=== PATIENT | female | born 1980 | race Caucasian/White ===

== ENCOUNTER → 2017-06-25 | Outpatient (CLI) | payer BC ==
[~2017-06-25] MED LIST: ALBU90OI6 INH; BISA5EC PO; Budeprion Xl300 MG PO; CYCL10 PO; Citrate Of Mag300 ML PO; DIPATR PO; DOCU100 PO; DULO30 PO; DULO60; EPIN.3I IM; FOLI1 PO; GABA300 PO; HYDHCL25 PO; HYDSUL200 PO; IBUP600 PO; Imitrex50 MG JT; LORA1 PO; METF500 PO; METTREX2.5 PO; NIKKI 3 MG-0.01 EACH PO; OXYC1TAB11; Ondansetron Odt8 MG PO; Oxycodone-Apap1 EAC3 PO; PRED10 PO; PRED5 PO; PSYL5.85P PO; Pepcid20 MG PO; Percocet 5-3251 EACH PO; Prednisone20 MG PO; TIZANIDINE HCL4 MG PO; TOPI50 PO; TOPIRAMATE; Yaz 28 Tablet1 EACH PO; ZYRTEC10 M1 PO
[2017-06-25 14:17] LABS: BASOPHILS ABSOLUTE AUTO 0.03 K/mm3 (0.00-0.23); BASOPHILS PERCENT AUTO 0 % (0-2); EOSINOPHILS ABSOLUTE AUTO 0.13 K/mm3 (0.00-0.68); EOSINOPHILS PERCENT AUTO 2 % (0-6); Hematocrit 37.3 % (33.0-51.0); Hemoglobin 12.3 g/dL (11.5-16.0); IMMATURE GRAN ABSOLUTE AUTO 0.02 K/mm3 (0.00-0.10); IMMATURE GRAN PERCENT AUTO 0 % (0-1); LYMPHOCYTES ABSOLUTE AUTO 2.13 K/mm3 (0.84-5.20); LYMPHOCYTES PERCENT AUTO 24 % (21-46); MONOCYTES ABSOLUTE AUTO 0.38 K/mm3 (0.16-1.47); MONOCYTES PERCENT AUTO 4 % (4-13); Mean Corpuscular HGB 28.9 pg (26.0-34.0); Mean Corpuscular Volume 88 fL (80-100); Mean Platelet Volume 9.1 fL (9.1-12.4); NEUTROPHILS PERCENT AUTO 70 % (41-73); Platelet Count 351 K/mm3 (150-400); RDW Coefficient Variation 12.3 % (11.7-14.2); RDW Standard Deviation 39.9 fL (35.1-46.3); Red Blood Cell Count 4.25 M/mm3 (3.80-5.20); White Blood Cell Count 8.89 K/mm3 (4.00-11.30)
[2017-06-25 14:38] LABS: Alanine Aminotransfer (ALT/SGP 26 U/L (12-78); Albumin, Blood 3.8 g/dL (3.4-5.0); Alk Phos 24 U/L (40-126); Anion Gap 12 mmol/L (6-16); Aspartate Aminotrans (AST/SGOT 19 U/L (12-37); Bilirubin, Total 0.3 mg/dL (0.1-1.0); Blood Urea Nitrogen 13 mg/dL (8-24); Bun/Creatinine Ratio 13.1 (12.0-20.0); CO2, Blood 24 mmol/L (21-32); Calcium, Blood 9.4 mg/dL (8.5-10.1); Chloride, Blood 103 mmol/L (98-108); Creatinine, Blood 0.99 mg/dL (0.40-1.00); Globulin, Blood 3.9 g/dL (2.2-4.0); Glomerular Filtration Rate >60 (60-); Glucose, Blood 93 mg/dL (70-99); Potassium, Blood 4.1 mmol/L (3.5-5.5); Sodium, Blood 139 mmol/L (136-145); Total Protein, Blood 7.7 g/dL (6.4-8.2)
== END ==
LOC: LAB SHORT 14:13
PROVIDERS: Family Medicine
DX: R30.0 Dysuria (principal)
CPT/HCPCS: 80053; 85025; 87086

== ENCOUNTER → 2017-12-17 | Outpatient (CLI) | payer BC ==
[~2017-12-17] MED LIST changes: -DULO30 PO; -DULO60; -FOLI1 PO; -GABA300 PO; -HYDHCL25 PO; -HYDSUL200 PO; -Imitrex50 MG JT; -METTREX2.5 PO; -NIKKI 3 MG-0.01 EACH PO; -PRED5 PO
[2017-12-17 12:16] LABS: BASOPHILS ABSOLUTE AUTO 0.03 K/mm3 (0.00-0.23); BASOPHILS PERCENT AUTO 1 % (0-2); EOSINOPHILS ABSOLUTE AUTO 0.28 K/mm3 (0.00-0.68); EOSINOPHILS PERCENT AUTO 5 % (0-6); Hematocrit 36.7 % (33.0-51.0); Hemoglobin 12.2 g/dL (11.5-16.0); IMMATURE GRAN ABSOLUTE AUTO 0.01 K/mm3 (0.00-0.10); IMMATURE GRAN PERCENT AUTO 0 % (0-1); LYMPHOCYTES ABSOLUTE AUTO 1.62 K/mm3 (0.84-5.20); LYMPHOCYTES PERCENT AUTO 29 % (21-46); MONOCYTES ABSOLUTE AUTO 0.29 K/mm3 (0.16-1.47); MONOCYTES PERCENT AUTO 5 % (4-13); Mean Corpuscular HGB Conc 33.2 g/dL (31.5-36.5); Mean Corpuscular Volume 90 fL (80-100); Mean Platelet Volume 9.5 fL (9.1-12.4); NEUTROPHILS ABSOLUTE AUTO 3.31 K/mm3 (1.96-9.15); NEUTROPHILS PERCENT AUTO 60 % (41-73); Platelet Count 267 K/mm3 (150-400); RDW Coefficient Variation 12.2 % (11.7-14.2); RDW Standard Deviation 40.4 fL (35.1-46.3); Red Blood Cell Count 4.07 M/mm3 (3.80-5.20); White Blood Cell Count 5.54 K/mm3 (4.00-11.30)
[2017-12-17 12:34] LABS: Albumin, Blood 3.9 g/dL (3.4-5.0); Albumin/Globulin Ratio 1.2 (0.8-1.8); Bilirubin, Total 0.3 mg/dL (0.1-1.0); Calcium, Blood 8.8 mg/dL (8.5-10.1); Creatinine, Blood 1.2 mg/dL (0.40-1.00); Globulin, Blood 3.2 g/dL (2.2-4.0); Potassium, Blood 4.1 mmol/L (3.5-5.5); Total Protein, Blood 7.1 g/dL (6.4-8.2)
== END | disposition home or self-care (01) ==
LOC: LAB SHORT 12:05 → LAB EV 12:05
PROVIDERS: Physician Assistant Medical
DX: R10.84 Generalized abdominal pain (principal)
CPT/HCPCS: 80053; 85025

== ENCOUNTER → 2018-11-12 | Outpatient (CLI) | payer BC ==
[~2018-11-12] MED LIST changes: +DULO30 PO; +DULO60; +FOLI1 PO; +GABA300 PO; +HYDHCL25 PO; +HYDSUL200 PO; +Imitrex50 MG JT; +METTREX2.5 PO; +NIKKI 3 MG-0.01 EACH PO; +PRED5 PO
[2018-11-12 09:37] LABS: BASOPHILS ABSOLUTE AUTO 0.05 K/mm3 (0.00-0.23); BASOPHILS PERCENT AUTO 1 % (0-2); EOSINOPHILS ABSOLUTE AUTO 0.33 K/mm3 (0.00-0.68); EOSINOPHILS PERCENT AUTO 5 % (0-6); Hematocrit 36.1 % (33.0-51.0); Hemoglobin 12.3 g/dL (11.5-16.0); IMMATURE GRAN ABSOLUTE AUTO 0.02 K/mm3 (0.00-0.10); IMMATURE GRAN PERCENT AUTO 0 % (0-1); LYMPHOCYTES PERCENT AUTO 24 % (21-46); MONOCYTES ABSOLUTE AUTO 0.35 K/mm3 (0.16-1.47); MONOCYTES PERCENT AUTO 5 % (4-13); Mean Corpuscular HGB 32.8 pg (26.0-34.0); Mean Corpuscular HGB Conc 34.1 g/dL (31.5-36.5); Mean Corpuscular Volume 96 fL (80-100); Mean Platelet Volume 9.3 fL (9.1-12.4); NEUTROPHILS ABSOLUTE AUTO 4.74 K/mm3 (1.96-9.15); NEUTROPHILS PERCENT AUTO 66 % (41-73); Platelet Count 317 K/mm3 (150-400); RDW Coefficient Variation 12.9 % (11.7-14.2); RDW Standard Deviation 44.5 fL (35.1-46.3); Red Blood Cell Count 3.75 M/mm3 (3.80-5.20); White Blood Cell Count 7.19 K/mm3 (4.00-11.30)
[2018-11-12 09:54] LABS: Alanine Aminotransfer (ALT/SGP 15 U/L (12-78); Albumin/Globulin Ratio 1.1 (0.8-1.8); Alk Phos 23 U/L (40-126); Anion Gap 10 mmol/L (6-16); Aspartate Aminotrans (AST/SGOT 29 U/L (12-37); Bilirubin, Total 0.3 mg/dL (0.1-1.0); Blood Urea Nitrogen 15 mg/dL (8-24); CO2, Blood 25 mmol/L (21-32); Calcium, Blood 9.5 mg/dL (8.5-10.1); Chloride, Blood 101 mmol/L (98-108); Creatinine, Blood 0.94 mg/dL (0.40-1.00); Globulin, Blood 3.6 g/dL (2.2-4.0); Glomerular Filtration Rate >60 (60-); Glucose, Blood 93 mg/dL (70-99); Potassium, Blood 4.6 mmol/L (3.5-5.5); Sodium, Blood 136 mmol/L (136-145); Total Protein, Blood 7.6 g/dL (6.4-8.2)
== END | disposition home or self-care (01) ==
LOC: LAB EV 09:31 → LAB SHORT 09:31
PROVIDERS: Family Medicine
DX: M35.9 Systemic involvement of connective tissue, unspecified (principal); R53.83 Other fatigue
CPT/HCPCS: 80053; 84443; 85025; 85651; 86140

== ENCOUNTER → 2018-12-09 | Outpatient (CLI) | payer BC ==
[2018-12-09 15:14] LABS: BASOPHILS ABSOLUTE AUTO 0.03 K/mm3 (0.00-0.23); BASOPHILS PERCENT AUTO 1 % (0-2); EOSINOPHILS ABSOLUTE AUTO 0.17 K/mm3 (0.00-0.68); EOSINOPHILS PERCENT AUTO 3 % (0-6); Hematocrit 34.8 % (33.0-51.0); Hemoglobin 11.7 g/dL (11.5-16.0); IMMATURE GRAN ABSOLUTE AUTO 0.02 K/mm3 (0.00-0.10); IMMATURE GRAN PERCENT AUTO 0 % (0-1); LYMPHOCYTES ABSOLUTE AUTO 1.31 K/mm3 (0.84-5.20); LYMPHOCYTES PERCENT AUTO 21 % (21-46); MONOCYTES ABSOLUTE AUTO 0.27 K/mm3 (0.16-1.47); MONOCYTES PERCENT AUTO 4 % (4-13); Mean Corpuscular HGB 32.9 pg (26.0-34.0); Mean Corpuscular HGB Conc 33.6 g/dL (31.5-36.5); Mean Corpuscular Volume 98 fL (80-100); Mean Platelet Volume 8.8 fL (9.1-12.4); NEUTROPHILS ABSOLUTE AUTO 4.47 K/mm3 (1.96-9.15); NEUTROPHILS PERCENT AUTO 71 % (41-73); Platelet Count 309 K/mm3 (150-400); RDW Coefficient Variation 12.9 % (11.7-14.2); RDW Standard Deviation 45.7 fL (35.1-46.3); Red Blood Cell Count 3.56 M/mm3 (3.80-5.20); White Blood Cell Count 6.27 K/mm3 (4.00-11.30)
[2018-12-09 15:30] LABS: Alanine Aminotransfer (ALT/SGP 39 U/L (12-78); Albumin, Blood 3.7 g/dL (3.4-5.0); Albumin/Globulin Ratio 1.2 (0.8-1.8); Alk Phos 24 U/L (40-126); Anion Gap 11 mmol/L (6-16); Aspartate Aminotrans (AST/SGOT 27 U/L (12-37); Bilirubin, Total 0.3 mg/dL (0.1-1.0); Blood Urea Nitrogen 15 mg/dL (8-24); Bun/Creatinine Ratio 16.5 (12.0-20.0); CO2, Blood 25 mmol/L (21-32); Chloride, Blood 104 mmol/L (98-108); Creatinine, Blood 0.91 mg/dL (0.40-1.00); Globulin, Blood 3.2 g/dL (2.2-4.0); Glomerular Filtration Rate >60 (60-); Glucose, Blood 126 mg/dL (70-99); Potassium, Blood 4.2 mmol/L (3.5-5.5); Sodium, Blood 140 mmol/L (136-145); Total Protein, Blood 6.9 g/dL (6.4-8.2)
== END | disposition home or self-care (01) ==
LOC: LAB SHORT 15:10 → LAB EV 15:10
PROVIDERS: Physician Assistant Medical
DX: R51 Headache (principal)
CPT/HCPCS: 80053; 85025

== ENCOUNTER 2019-04-10 08:24 | Emergency (ER) | payer BC ==
[~2019-04-10] VITALS: Ht 157.5 cm; Wt 112.0 kg
[~2019-04-10 08:24] MED LIST changes: -Imitrex50 MG JT; +Imitrex50 MG PO
[2019-04-10 10:06] LABS: BASOPHILS ABSOLUTE AUTO 0.05 K/mm3 (0.00-0.23); BASOPHILS PERCENT AUTO 1 % (0-2); EOSINOPHILS ABSOLUTE AUTO 0.21 K/mm3 (0.00-0.68); EOSINOPHILS PERCENT AUTO 3 % (0-6); Hematocrit 33.9 % (33.0-51.0); Hemoglobin 11.1 g/dL (11.5-16.0); IMMATURE GRAN ABSOLUTE AUTO 0.02 K/mm3 (0.00-0.10); IMMATURE GRAN PERCENT AUTO 0 % (0-1); LYMPHOCYTES ABSOLUTE AUTO 1.99 K/mm3 (0.84-5.20); LYMPHOCYTES PERCENT AUTO 31 % (21-46); MONOCYTES ABSOLUTE AUTO 0.43 K/mm3 (0.16-1.47); MONOCYTES PERCENT AUTO 7 % (4-13); Mean Corpuscular HGB 32.7 pg (26.0-34.0); Mean Corpuscular HGB Conc 32.7 g/dL (31.5-36.5); Mean Corpuscular Volume 100 fL (80-100); Mean Platelet Volume 9.5 fL (9.1-12.4); NEUTROPHILS ABSOLUTE AUTO 3.76 K/mm3 (1.96-9.15); NEUTROPHILS PERCENT AUTO 58 % (41-73); Platelet Count 316 K/mm3 (150-400); RDW Standard Deviation 47.6 fL (35.1-46.3); Red Blood Cell Count 3.39 M/mm3 (3.80-5.20); White Blood Cell Count 6.46 K/mm3 (4.00-11.30)
[2019-04-10 10:16] LABS: Alanine Aminotransfer (ALT/SGP 38 U/L (12-78); Albumin, Blood 3.3 g/dL (3.4-5.0); Alk Phos 19 U/L (50-136); Anion Gap 10 mmol/L (6-16); Aspartate Aminotrans (AST/SGOT 30 U/L (12-37); Bilirubin, Total 0.1 mg/dL (0.1-1.0); Blood Urea Nitrogen 19 mg/dL (8-24); Bun/Creatinine Ratio 23.4 (12.0-20.0); CO2, Blood 24 mmol/L (21-32); Calcium, Blood 8.2 mg/dL (8.5-10.1); Chloride, Blood 106 mmol/L (98-108); Creatinine, Blood 0.81 mg/dL (0.40-1.00); Globulin, Blood 3.3 g/dL (2.2-4.0); Glomerular Filtration Rate >60 (60-); Glucose, Blood 99 mg/dL (70-99); Potassium, Blood 4.2 mmol/L (3.5-5.5); Sodium, Blood 140 mmol/L (136-145); Total Protein, Blood 6.6 g/dL (6.4-8.2)
[2019-04-10 10:59] LABS: International Normalized Ratio 0.92; Prothrombin Time Results 9.8 Sec (9.7-11.5)
[2019-04-10 11:02] LABS: Source, Urine Voided
[2019-04-10 11:17] LABS: Bilirubin, Urine Neg (Neg); Blood, Urine Neg (Neg); Glucose Qualitative, Urine Neg (Neg); Ketones, Urine Neg (Neg); Leukocyte Esterase, Urine Neg (Neg); Nitrite, Urine Neg (Neg); Protein, Urine Neg (Neg); Specific Gravity, Urine 1.015 (1.003-1.022); Urobilinogen, Urine NORM (Normal)
[2019-04-10 11:18] LABS: Appearance, Urine Clear (Clear); Color, Urine Yellow (P-Yellow)
[2019-04-10 11:37] LABS: Influenza A Negative (NEGATIVE); Influenza B Negative (NEGATIVE)
[2019-04-10 15:07] LABS: Glucose, CSF 58 mg/dL (40-70)
[2019-04-10 15:19] LABS: RBC Count, CSF 24 /mm3 (0-0); WBC Count, CSF 0 /mm3 (0-5)
[2019-04-10 15:32] LABS: Appearance, CSF Clear (Clear); Color, CSF No Color (No Color); RBC Count, CSF 1 /mm3 (0-0); WBC Count, CSF 0 /mm3 (0-5)
[2019-04-10 15:33] LABS: Appearance, CSF Clear (Clear); Color, CSF No Color (No Color)
[2019-04-10 15:48] LABS: Lymphocytes, CSF 75 % (40-80); Neutrophils, CSF 25 % (0-6)
[2019-04-10 15:51] LABS: Lymphocytes, CSF 100 % (40-80)
[2019-04-10 16:19] LABS: Cryptococcus Neoformans/Gattii Not Detected (NOT DETECT); Enterovirus Not Detected (NOT DETECT); Escherichia Coli K1 Not Detected (NOT DETECT); Haemophilus Influenza Not Detected (NOT DETECT); Herpes Simplex Virus 1 Not Detected (NOT DETECT); Herpes Simplex Virus 2 Not Detected (NOT DETECT); Human Herpesvirus 6 Not Detected (NOT DETECT); Human Parechovirus Not Detected (NOT DETECT); Listeria Monocytogenes Not Detected (NOT DETECT); Neisseria Meningitidis Not Detected (NOT DETECT); Streptococcus Agalactiae Not Detected (NOT DETECT); Streptococcus Pneumoniae Not Detected (NOT DETECT); Varicella Zoster Virus Not Detected (NOT DETECT)
[2019-04-10] MEDS ORDERED: Diflucan150 MG PO (16:52)
[2019-04-10] MEDS ORDERED: Percocet 7.5-31 EACH PO (16:52)
[2019-04-10] MEDS ORDERED: Zovirax800 MG PO (16:52)
[2019-04-11] MEDS ORDERED: NIKKI 3 MG-0.01 EAC1 PO (17:10)
[2019-04-11] MEDS ORDERED: Carbidopa-Levo1 EAC4 PO (17:14)
[2019-04-11] MEDS ORDERED: Diazepam2 MG PO (18:40)
[2019-04-11] MEDS ORDERED: Fentanyl1 EACH TOP (18:42)
== END 2019-04-10 17:06 | disposition home or self-care (01) ==
LOC: ER 08:24
PROVIDERS: Emergency Medicine
DX: B02.9 Zoster without complications (principal); R51 Headache; G20 Parkinson's disease; Z88.0 Allergy status to penicillin; Z88.8 Allergy status to other drugs, medicaments and biological substances; Z79.899 Other long term (current) drug therapy; Z79.52 Long term (current) use of systemic steroids
CPT/HCPCS: 36415; 62270; 70450; 71046; 80053; 81003; 82945; 82947; 83605; 84157; 85025; 85610; 87040; 87483; 87804; 89051; 93005; 93010; 93971; 96361-59; 96365-59; 96367-59; 96375-59; 96376-59; 99284-25; J0696; J1170; J1200; J1570; J7030; J8499

== ENCOUNTER 2019-04-11 13:54 | Inpatient (IN) | payer BC ==
[~2019-04-11] VITALS: Ht 157.5 cm; Wt 104.9 kg
[~2019-04-11 13:54] MED LIST changes: +Diflucan150 MG PO; +Percocet 7.5-31 EACH PO; +Zovirax800 MG PO
[2019-04-11 15:01] LABS: BASOPHILS ABSOLUTE AUTO 0.05 K/mm3 (0.00-0.23); BASOPHILS PERCENT AUTO 1 % (0-2); EOSINOPHILS ABSOLUTE AUTO 0.21 K/mm3 (0.00-0.68); EOSINOPHILS PERCENT AUTO 3 % (0-6); Hematocrit 34.4 % (33.0-51.0); Hemoglobin 10.9 g/dL (11.5-16.0); IMMATURE GRAN ABSOLUTE AUTO 0.02 K/mm3 (0.00-0.10); IMMATURE GRAN PERCENT AUTO 0 % (0-1); LYMPHOCYTES ABSOLUTE AUTO 1.97 K/mm3 (0.84-5.20); LYMPHOCYTES PERCENT AUTO 31 % (21-46); MONOCYTES ABSOLUTE AUTO 0.34 K/mm3 (0.16-1.47); MONOCYTES PERCENT AUTO 5 % (4-13); Mean Corpuscular HGB 32.2 pg (26.0-34.0); Mean Corpuscular HGB Conc 31.7 g/dL (31.5-36.5); Mean Corpuscular Volume 102 fL (80-100); Mean Platelet Volume 9.3 fL (9.1-12.4); NEUTROPHILS ABSOLUTE AUTO 3.83 K/mm3 (1.96-9.15); NEUTROPHILS PERCENT AUTO 60 % (41-73); Platelet Count 316 K/mm3 (150-400); RDW Coefficient Variation 12.8 % (11.7-14.2); RDW Standard Deviation 47.8 fL (35.1-46.3); Red Blood Cell Count 3.38 M/mm3 (3.80-5.20); White Blood Cell Count 6.42 K/mm3 (4.00-11.30)
[2019-04-11 15:15] LABS: Alanine Aminotransfer (ALT/SGP 35 U/L (12-78); Albumin, Blood 3.3 g/dL (3.4-5.0); Alk Phos 22 U/L (50-136); Anion Gap 6 mmol/L (6-16); Aspartate Aminotrans (AST/SGOT 29 U/L (12-37); Bilirubin, Total 0.2 mg/dL (0.1-1.0); Blood Urea Nitrogen 15 mg/dL (8-24); Bun/Creatinine Ratio 20.1 (12.0-20.0); CO2, Blood 22 mmol/L (21-32); Calcium, Blood 8.6 mg/dL (8.5-10.1); Chloride, Blood 107 mmol/L (98-108); Creatinine, Blood 0.75 mg/dL (0.40-1.00); Globulin, Blood 3.4 g/dL (2.2-4.0); Glomerular Filtration Rate >60 (60-); Glucose, Blood 106 mg/dL (70-99); Potassium, Blood 4.2 mmol/L (3.5-5.5); Sodium, Blood 135 mmol/L (136-145); Total Protein, Blood 6.7 g/dL (6.4-8.2)
[2019-04-11] MEDS ORDERED: NIKKI 3 MG-0.01 EAC1 PO (17:10)
[2019-04-11] MEDS ORDERED: Carbidopa-Levo1 EAC4 PO (17:14)
--- NOTE | 2019-04-11 18:05 | NUR ---
PATIENT ARRIVED TO ROOM VIA GURNEY. AT BESIDE. VSS, ON RA. REPORTS SEVERE PAIN ALL OVER. STATES SHE IS HAVING A DYSTONIA ATTACK. ORIENTED TO ROOM AND USE OF CALL LIGHT. 20G IV TO R FA WNL, AZACTAM HUNG AND FLUIDS STARTED.
[2019-04-11] MEDS ORDERED: Diazepam2 MG PO (18:40)
[2019-04-11] MEDS ORDERED: Fentanyl1 EACH TOP (18:42)
--- NOTE | 2019-04-12 01:28 | NUR ---
PT has chronic and acute pain with chronic spasms. Oxycodone 10 mg Q 4 hours x 2 Valium po 3 mg and tizanidine 4 mg po Q 6 hours. Ativan 1 mg po for anxiety. Fentanyl 50 mcg iv times 2 none with helpful effect. PT with lupus vasculitis, RA and on IV chemo as well as methotrexate Q Sunday. PT reports she has hx of spinal tap x 5 last here on 04/10/19. Prior hx of needing several blood patches after each and every spinal tap for leaking CSF. No leaking when PT up out of bed she says she has worse positional headache. Active shingles dried in rt breast and abd. Says MD is aware she has issues after spinal tap and anesthesia provider needed to address blood patch if needed. Changed her RX valium to facilitate home routine takes Q 6 hours with tizanidine so made next dose due 6 hours after last or she said she will have seizures and torshion.
--- NOTE | 2019-04-12 05:41 | NUR ---
pt with acute on chronic pain and acute on chronic migraine headaches was admitted for positve blood culture from ER visit. PT has lupus and RA and neuritis and see specialist in [place] to manage RA and lupus. Recieved IV chemo last 04/04/19 due for repeat chemo next Sunday in [place]. PT started Rotuxin on 04/04/19 and continues sc methotrexate per her report. PT reports she had spinal tap 04/10/19 in ER and has hx of 4 prior spinal taps over last 3 years years which have all required blood patches afterward to resove issues. Uses fentanyl patch 25 mcg Q 72 hours and takes scheuled 3 mg oral valium with scheduled tinazadine for spasms and seizure type activity, intermittant lt facial droop PT says is baseline. PT says she missed recent [facility] specialist Appt due to increased medical problems. WC bound unable to ambulated last 2 month, needs around the clock caregivers. Spouse in and supportive, active dried shingles started 6 days prior to admission. Reports pain of 9 despite multiple medical modalities and rx. Best pain level of 6. in contact precautions with masks as desired. PT says she has spoken with MD about hx of multiple blood patches post spinal tap. on antibiotics and IVF per RX. Own WC present, up to BSC with assist.
[2019-04-12 05:48] LABS: BASOPHILS ABSOLUTE AUTO 0.06 K/mm3 (0.00-0.23); BASOPHILS PERCENT AUTO 1 % (0-2); EOSINOPHILS ABSOLUTE AUTO 0.18 K/mm3 (0.00-0.68); EOSINOPHILS PERCENT AUTO 3 % (0-6); Hematocrit 31.4 % (33.0-51.0); Hemoglobin 10.2 g/dL (11.5-16.0); IMMATURE GRAN ABSOLUTE AUTO 0.01 K/mm3 (0.00-0.10); IMMATURE GRAN PERCENT AUTO 0 % (0-1); LYMPHOCYTES ABSOLUTE AUTO 2.43 K/mm3 (0.84-5.20); LYMPHOCYTES PERCENT AUTO 37 % (21-46); MONOCYTES ABSOLUTE AUTO 0.36 K/mm3 (0.16-1.47); MONOCYTES PERCENT AUTO 6 % (4-13); Mean Corpuscular HGB 33.3 pg (26.0-34.0); Mean Corpuscular HGB Conc 32.5 g/dL (31.5-36.5); Mean Corpuscular Volume 103 fL (80-100); Mean Platelet Volume 9.4 fL (9.1-12.4); NEUTROPHILS ABSOLUTE AUTO 3.46 K/mm3 (1.96-9.15); NEUTROPHILS PERCENT AUTO 53 % (41-73); Platelet Count 296 K/mm3 (150-400); RDW Coefficient Variation 12.7 % (11.7-14.2); RDW Standard Deviation 47.8 fL (35.1-46.3); Red Blood Cell Count 3.06 M/mm3 (3.80-5.20)
[2019-04-12 06:05] LABS: Alanine Aminotransfer (ALT/SGP 30 U/L (12-78); Albumin, Blood 2.8 g/dL (3.4-5.0); Albumin/Globulin Ratio 0.9 (0.8-1.8); Alk Phos 21 U/L (50-136); Anion Gap 10 mmol/L (6-16); Aspartate Aminotrans (AST/SGOT 23 U/L (12-37); Bilirubin, Total 0.4 mg/dL (0.1-1.0); Blood Urea Nitrogen 15 mg/dL (8-24); Bun/Creatinine Ratio 17.1 (12.0-20.0); CO2, Blood 21 mmol/L (21-32); Calcium, Blood 7.7 mg/dL (8.5-10.1); Chloride, Blood 108 mmol/L (98-108); Creatinine, Blood 0.88 mg/dL (0.40-1.00); Globulin, Blood 3.1 g/dL (2.2-4.0); Glomerular Filtration Rate >60 (60-); Glucose, Blood 116 mg/dL (70-99); Potassium, Blood 3.8 mmol/L (3.5-5.5); Sodium, Blood 139 mmol/L (136-145); Total Protein, Blood 5.9 g/dL (6.4-8.2)
--- NOTE | 2019-04-12 11:43 | NUR ---
PATIENT D/C'D TO HOME WITH . D/C INSTRUCTIONS AND EDUCATION DISCUSSED WITH PATIENT AND COPY PROVIDED. HARD SCRIPT FOR NORCO GIVEN TO PATIENT. PATIENT DENIES ANY FURTHER QUESTIONS OR CONCERNS.
== END 2019-04-12 11:21 | disposition home or self-care (01) | DRG 93 ==
LOC: ER 13:54 → MEDS 16:16 → ENPENDDIS 04-12 10:01 → MEDS 04-12 11:21
PROVIDERS: Family Medicine; Physician Assistant; ADMIT Hospitalist
DX: G24.8 Other dystonia (principal); M32.19 Other organ or system involvement in systemic lupus erythematosus; M06.9 Rheumatoid arthritis, unspecified; G20 Parkinson's disease; Z99.3 Dependence on wheelchair; F41.1 Generalized anxiety disorder; B02.9 Zoster without complications; D64.9 Anemia, unspecified; G89.4 Chronic pain syndrome; F43.12 Post-traumatic stress disorder, chronic; F41.8 Other specified anxiety disorders; T45.1X5A Adverse effect of antineoplastic and immunosuppressive drugs, initial encounter; Y92.9 Unspecified place or not applicable
CPT/HCPCS: 36415; 80053; 83605; 85025; 87040; 93306; 96365; 96366; 96375; 99284-25; A9270-GY; J0696; J1170; J1200; J1650; J3010; J3370; J7030; J7050; Q0163

== ENCOUNTER → 2019-04-26 | Outpatient (CLI) | payer BC ==
[~2019-04-26] MED LIST changes: +Carbidopa-Levo1 EAC4 PO; +Diazepam2 MG PO; +Fentanyl1 EACH TOP; +NIKKI 3 MG-0.01 EAC1 PO
== END | disposition home or self-care (01) ==
LOC: LAB EV 13:20 → LAB SHORT 13:20
DX: J02.9 Acute pharyngitis, unspecified (principal); D84.9 Immunodeficiency, unspecified
CPT/HCPCS: 87081

== ENCOUNTER 2019-05-01 06:49 | Emergency (ER) | payer BC ==
[~2019-05-01] VITALS: Ht 157.5 cm; Wt 104.3 kg
[2019-05-01 08:03] LABS: BASOPHILS ABSOLUTE AUTO 0.04 K/mm3 (0.00-0.23); BASOPHILS PERCENT AUTO 1 % (0-2); EOSINOPHILS PERCENT AUTO 5 % (0-6); Hemoglobin 11.8 g/dL (11.5-16.0); IMMATURE GRAN ABSOLUTE AUTO 0.01 K/mm3 (0.00-0.10); IMMATURE GRAN PERCENT AUTO 0 % (0-1); LYMPHOCYTES ABSOLUTE AUTO 1.93 K/mm3 (0.84-5.20); LYMPHOCYTES PERCENT AUTO 33 % (21-46); MONOCYTES ABSOLUTE AUTO 0.56 K/mm3 (0.16-1.47); MONOCYTES PERCENT AUTO 10 % (4-13); Mean Corpuscular HGB 33.4 pg (26.0-34.0); Mean Corpuscular HGB Conc 32.8 g/dL (31.5-36.5); Mean Corpuscular Volume 102 fL (80-100); Mean Platelet Volume 9.3 fL (9.1-12.4); NEUTROPHILS ABSOLUTE AUTO 3.04 K/mm3 (1.96-9.15); NEUTROPHILS PERCENT AUTO 52 % (41-73); Platelet Count 297 K/mm3 (150-400); RDW Coefficient Variation 13.4 % (11.7-14.2); RDW Standard Deviation 49.8 fL (35.1-46.3); Red Blood Cell Count 3.53 M/mm3 (3.80-5.20); White Blood Cell Count 5.88 K/mm3 (4.00-11.30)
[2019-05-01 08:05] LABS: Influenza A Negative (NEGATIVE); Influenza B Negative (NEGATIVE)
[2019-05-01 08:23] LABS: Alanine Aminotransfer (ALT/SGP 36 U/L (12-78); Albumin, Blood 3.6 g/dL (3.4-5.0); Alk Phos 23 U/L (50-136); Anion Gap 7 mmol/L (6-16); Aspartate Aminotrans (AST/SGOT 40 U/L (12-37); Bilirubin, Total 0.2 mg/dL (0.1-1.0); Blood Urea Nitrogen 18 mg/dL (8-24); Bun/Creatinine Ratio 21.5 (12.0-20.0); CO2, Blood 25 mmol/L (21-32); Calcium, Blood 8.7 mg/dL (8.5-10.1); Chloride, Blood 107 mmol/L (98-108); Creatinine, Blood 0.84 mg/dL (0.40-1.00); Globulin, Blood 3.7 g/dL (2.2-4.0); Glomerular Filtration Rate >60 (60-); Glucose, Blood 78 mg/dL (70-99); Sodium, Blood 139 mmol/L (136-145); Total Protein, Blood 7.3 g/dL (6.4-8.2)
[2019-05-01 08:53] LABS: Source, Urine Clean Catch
[2019-05-01 08:57] LABS: Bilirubin, Urine Neg (Neg); Blood, Urine Neg (Neg); Glucose Qualitative, Urine Neg (Neg); Ketones, Urine Neg (Neg); Leukocyte Esterase, Urine Neg (Neg); Nitrite, Urine Neg (Neg); Protein, Urine Neg (Neg); Specific Gravity, Urine 1.015 (1.003-1.022); Urobilinogen, Urine NORM (Normal)
[2019-05-01 09:02] LABS: Appearance, Urine Clear (Clear); Color, Urine Yellow (P-Yellow)
[2019-05-01] MEDS ORDERED: PERCOCET 10-321 EACH PO (11:39)
== END 2019-05-01 12:04 | disposition home or self-care (01) ==
LOC: ER 06:49
PROVIDERS: Emergency Medicine
DX: M54.2 Cervicalgia (principal); R05 Cough; G20 Parkinson's disease; Z88.0 Allergy status to penicillin; Z88.5 Allergy status to narcotic agent; Z79.899 Other long term (current) drug therapy; Z79.891 Long term (current) use of opiate analgesic
CPT/HCPCS: 36415; 51798; 71046; 80053; 81003; 83605; 84145; 85025; 87804; 96361; 96374; 96375; 96376; 99284-25; J1170; J1200; J1885; J2550; J7120

== ENCOUNTER 2019-05-03 23:59 | Emergency (ER) | payer BC ==
[~2019-05-03] VITALS: Ht 157.5 cm; Wt 106.1 kg
[~2019-05-03 23:59] MED LIST changes: +PERCOCET 10-321 EACH PO
[2019-05-04] MEDS ORDERED: BENZ100A PO (02:49)
== END 2019-05-04 03:45 | disposition home or self-care (01) ==
LOC: ER 23:59
DX: M54.2 Cervicalgia (principal); R51 Headache; F41.9 Anxiety disorder, unspecified; F32.9 Major depressive disorder, single episode, unspecified; F43.10 Post-traumatic stress disorder, unspecified; Z88.0 Allergy status to penicillin; Z88.1 Allergy status to other antibiotic agents; Z88.8 Allergy status to other drugs, medicaments and biological substances; Z79.899 Other long term (current) drug therapy; Z79.51 Long term (current) use of inhaled steroids
CPT/HCPCS: 96374; 96375; 99283; J1200; J1630; J2060; J2550

== ENCOUNTER 2019-06-02 19:05 | Emergency (ER) | payer BC ==
[~2019-06-02] VITALS: Ht 157.5 cm; Wt 104.3 kg
[~2019-06-02 19:05] MED LIST changes: -PROM25 PO; -PROM25S PR
[2019-06-02 22:02] LABS: Free Thyroxine 0.8 ng/dL (0.70-1.60)
[2019-06-02 22:04] LABS: Thyroid Stimulating Hormone 0.732 uIU/mL (0.360-4.800)
[2019-06-02 22:10] LABS: Source, Urine Clean Catch
[2019-06-02 22:15] LABS: Bilirubin, Urine Neg (Neg); Blood, Urine 1+ (Neg); Glucose Qualitative, Urine Neg (Neg); Ketones, Urine 3+ (Neg); Leukocyte Esterase, Urine Neg (Neg); Nitrite, Urine Neg (Neg); Protein, Urine Neg (Neg); Specific Gravity, Urine 1.015 (1.003-1.022); Urobilinogen, Urine NORM (Normal)
[2019-06-02 22:17] LABS: Appearance, Urine Clear (Clear); Color, Urine Yellow (P-Yellow)
[2019-06-02 22:23] LABS: Bacteria Few /hpf; Red Blood Cells, Urine 0-2 /hpf (0-2); Squamous Epithelial Cells Few /hpf (Few); White Blood Cells, Urine 0-2 /hpf (0-5)
[2019-06-02] MEDS ORDERED: PROM25 PO (22:42)
[2019-06-02] MEDS ORDERED: PROM25S PR (22:42)
== END 2019-06-02 23:26 | disposition home or self-care (01) ==
LOC: ER 19:05
PROVIDERS: Physician Assistant
DX: R07.9 Chest pain, unspecified (principal); R06.00 Dyspnea, unspecified; R11.2 Nausea with vomiting, unspecified; R51 Headache; R10.9 Unspecified abdominal pain; Z88.0 Allergy status to penicillin; Z88.1 Allergy status to other antibiotic agents; Z79.899 Other long term (current) drug therapy; Z79.891 Long term (current) use of opiate analgesic; F43.10 Post-traumatic stress disorder, unspecified; F41.9 Anxiety disorder, unspecified; F32.9 Major depressive disorder, single episode, unspecified; G43.909 Migraine, unspecified, not intractable, without status migrainosus
CPT/HCPCS: 36415; 70450; 71046; 81001; 83690; 84439; 84443; 93005; 93010; 96374; 96375; 96376; 99284-25; A9270; J1170; J1200; J2550; J3010

== ENCOUNTER → 2019-06-02 | Outpatient (CLI) | payer BC ==
[~2019-06-02] MED LIST changes: +BENZ100A PO; +PROM25 PO; +PROM25S PR
[2019-06-02 17:30] LABS: BASOPHILS ABSOLUTE AUTO 0.03 K/mm3 (0.00-0.23); BASOPHILS PERCENT AUTO 0 % (0-2); EOSINOPHILS ABSOLUTE AUTO 0.07 K/mm3 (0.00-0.68); EOSINOPHILS PERCENT AUTO 1 % (0-6); Hematocrit 39.7 % (33.0-51.0); Hemoglobin 13.1 g/dL (11.5-16.0); IMMATURE GRAN ABSOLUTE AUTO 0.03 K/mm3 (0.00-0.10); IMMATURE GRAN PERCENT AUTO 0 % (0-1); LYMPHOCYTES ABSOLUTE AUTO 1.46 K/mm3 (0.84-5.20); LYMPHOCYTES PERCENT AUTO 17 % (21-46); MONOCYTES PERCENT AUTO 5 % (4-13); Mean Corpuscular HGB 32.8 pg (26.0-34.0); Mean Corpuscular Volume 100 fL (80-100); Mean Platelet Volume 9.5 fL (9.1-12.4); NEUTROPHILS ABSOLUTE AUTO 6.82 K/mm3 (1.96-9.15); NEUTROPHILS PERCENT AUTO 78 % (41-73); Platelet Count 374 K/mm3 (150-400); RDW Coefficient Variation 13.3 % (11.7-14.2); RDW Standard Deviation 48.4 fL (35.1-46.3); Red Blood Cell Count 3.99 M/mm3 (3.80-5.20); White Blood Cell Count 8.81 K/mm3 (4.00-11.30)
[2019-06-02 17:44] LABS: Alanine Aminotransfer (ALT/SGP 37 U/L (12-78); Albumin, Blood 3.9 g/dL (3.4-5.0); Albumin/Globulin Ratio 1.1 (0.8-1.8); Alk Phos 30 U/L (40-126); Anion Gap 14 mmol/L (6-16); Aspartate Aminotrans (AST/SGOT 32 U/L (12-37); Bilirubin, Total 0.2 mg/dL (0.1-1.0); Blood Urea Nitrogen 13 mg/dL (8-24); Bun/Creatinine Ratio 14.8 (12.0-20.0); CO2, Blood 22 mmol/L (21-32); Chloride, Blood 102 mmol/L (98-108); Creatinine, Blood 0.88 mg/dL (0.40-1.00); Globulin, Blood 3.6 g/dL (2.2-4.0); Glomerular Filtration Rate >60 (60-); Glucose, Blood 96 mg/dL (70-99); Potassium, Blood 4.2 mmol/L (3.5-5.5); Sodium, Blood 138 mmol/L (136-145); Total Protein, Blood 7.5 g/dL (6.4-8.2); Troponin I <0.017 ng/mL (0.000-0.040)
== END | disposition home or self-care (01) ==
LOC: LAB EV 17:26 → LAB SHORT 17:26
PROVIDERS: Physician Assistant
DX: R07.9 Chest pain, unspecified (principal)
CPT/HCPCS: 80053; 84484; 85025; 85379

== ENCOUNTER 2019-08-29 14:59 | Emergency (ER) | payer BC ==
[~2019-08-29] VITALS: Ht 157.5 cm; Wt 98.4 kg
[~2019-08-29 14:59] MED LIST changes: +PROM25 PO; +PROM25S PR
[2019-08-29 16:21] LABS: BASOPHILS ABSOLUTE AUTO 0.02 K/mm3 (0.00-0.23); BASOPHILS PERCENT AUTO 0 % (0-2); EOSINOPHILS ABSOLUTE AUTO 0.24 K/mm3 (0.00-0.68); EOSINOPHILS PERCENT AUTO 5 % (0-6); Hematocrit 37.6 % (33.0-51.0); Hemoglobin 12.5 g/dL (11.5-16.0); IMMATURE GRAN ABSOLUTE AUTO 0.02 K/mm3 (0.00-0.10); IMMATURE GRAN PERCENT AUTO 0 % (0-1); LYMPHOCYTES ABSOLUTE AUTO 1.24 K/mm3 (0.84-5.20); LYMPHOCYTES PERCENT AUTO 26 % (21-46); MONOCYTES ABSOLUTE AUTO 0.26 K/mm3 (0.16-1.47); MONOCYTES PERCENT AUTO 6 % (4-13); Mean Corpuscular HGB 32.1 pg (26.0-34.0); Mean Corpuscular HGB Conc 33.2 g/dL (31.5-36.5); Mean Corpuscular Volume 97 fL (80-100); Mean Platelet Volume 9.7 fL (9.1-12.4); NEUTROPHILS ABSOLUTE AUTO 2.95 K/mm3 (1.96-9.15); NEUTROPHILS PERCENT AUTO 62 % (41-73); Platelet Count 283 K/mm3 (150-400); RDW Coefficient Variation 13.2 % (11.7-14.2); RDW Standard Deviation 45.6 fL (35.1-46.3); Red Blood Cell Count 3.89 M/mm3 (3.80-5.20); White Blood Cell Count 4.73 K/mm3 (4.00-11.30)
[2019-08-29 16:47] LABS: Alanine Aminotransfer (ALT/SGP 97 U/L (12-78); Albumin, Blood 4.1 g/dL (3.4-5.0); Albumin/Globulin Ratio 1.2 (0.8-1.8); Alk Phos 34 U/L (50-136); Anion Gap 8 mmol/L (6-16); Aspartate Aminotrans (AST/SGOT 81 U/L (12-37); Bilirubin, Total 0.5 mg/dL (0.1-1.0); Blood Urea Nitrogen 9 mg/dL (8-24); Bun/Creatinine Ratio 11.2 (12.0-20.0); CO2, Blood 23 mmol/L (21-32); Calcium, Blood 9.1 mg/dL (8.5-10.1); Chloride, Blood 108 mmol/L (98-108); Creatinine, Blood 0.81 mg/dL (0.40-1.00); Globulin, Blood 3.5 g/dL (2.2-4.0); Glomerular Filtration Rate >60 (60-); Glucose, Blood 105 mg/dL (70-99); Potassium, Blood 3.7 mmol/L (3.5-5.5); Sodium, Blood 139 mmol/L (136-145); Total Protein, Blood 7.6 g/dL (6.4-8.2)
== END 2019-08-29 18:10 | disposition home or self-care (01) ==
LOC: ER 14:59
PROVIDERS: Emergency Medicine
DX: R10.9 Unspecified abdominal pain (principal); R79.89 Other specified abnormal findings of blood chemistry; Z87.39 Personal history of other diseases of the musculoskeletal system and connective tissue; M19.90 Unspecified osteoarthritis, unspecified site; Z88.0 Allergy status to penicillin; Z88.8 Allergy status to other drugs, medicaments and biological substances; Z88.1 Allergy status to other antibiotic agents; Z79.899 Other long term (current) drug therapy
CPT/HCPCS: 36415; 80053; 84703; 85025; 96374; 96375; 99284-25; J1200; J2550; J7030

== ENCOUNTER 2019-12-22 16:21 | Emergency (ER) | payer BC ==
[~2019-12-22] VITALS: Ht 157.5 cm; Wt 91.6 kg
[2019-12-22 18:06] LABS: BASOPHILS ABSOLUTE AUTO 0.03 K/mm3 (0.00-0.23); BASOPHILS PERCENT AUTO 0 % (0-2); EOSINOPHILS ABSOLUTE AUTO 0.17 K/mm3 (0.00-0.68); EOSINOPHILS PERCENT AUTO 2 % (0-6); Hematocrit 39.3 % (33.0-51.0); Hemoglobin 12.4 g/dL (11.5-16.0); IMMATURE GRAN ABSOLUTE AUTO 0.05 K/mm3 (0.00-0.10); IMMATURE GRAN PERCENT AUTO 1 % (0-1); LYMPHOCYTES ABSOLUTE AUTO 1.78 K/mm3 (0.84-5.20); LYMPHOCYTES PERCENT AUTO 23 % (21-46); MONOCYTES ABSOLUTE AUTO 0.36 K/mm3 (0.16-1.47); MONOCYTES PERCENT AUTO 5 % (4-13); Mean Corpuscular HGB 28.7 pg (26.0-34.0); Mean Corpuscular HGB Conc 31.6 g/dL (31.5-36.5); Mean Corpuscular Volume 91 fL (80-100); Mean Platelet Volume 9.5 fL (9.1-12.4); NEUTROPHILS ABSOLUTE AUTO 5.42 K/mm3 (1.96-9.15); NEUTROPHILS PERCENT AUTO 69 % (41-73); Platelet Count 342 K/mm3 (150-400); RDW Standard Deviation 40.1 fL (35.1-46.3); Red Blood Cell Count 4.32 M/mm3 (3.80-5.20); White Blood Cell Count 7.81 K/mm3 (4.00-11.30)
[2019-12-22 18:18] LABS: Source, Urine Clean Catch
[2019-12-22 18:20] LABS: Bilirubin, Urine Neg (Neg); Blood, Urine Neg (Neg); Glucose Qualitative, Urine Neg (Neg); Ketones, Urine Neg (Neg); Leukocyte Esterase, Urine Neg (Neg); Nitrite, Urine Neg (Neg); Protein, Urine Neg (Neg); Urobilinogen, Urine NORM (Normal)
[2019-12-22 18:28] LABS: Alanine Aminotransfer (ALT/SGP 25 U/L (12-78); Albumin, Blood 4.1 g/dL (3.4-5.0); Albumin/Globulin Ratio 1.2 (0.8-1.8); Alk Phos 40 U/L (50-136); Anion Gap 9 mmol/L (6-16); Aspartate Aminotrans (AST/SGOT 23 U/L (12-37); Bilirubin, Total 0.4 mg/dL (0.1-1.0); Blood Urea Nitrogen 9 mg/dL (8-24); Bun/Creatinine Ratio 9.3 (12.0-20.0); CO2, Blood 21 mmol/L (21-32); Calcium, Blood 8.9 mg/dL (8.5-10.1); Chloride, Blood 105 mmol/L (98-108); Creatinine, Blood 0.97 mg/dL (0.40-1.00); Globulin, Blood 3.5 g/dL (2.2-4.0); Glomerular Filtration Rate >60 (60-); Glucose, Blood 95 mg/dL (70-99); Potassium, Blood 3.9 mmol/L (3.5-5.5); Sodium, Blood 135 mmol/L (136-145); Total Protein, Blood 7.6 g/dL (6.4-8.2)
[2019-12-22 18:29] LABS: Appearance, Urine Clear (Clear); Color, Urine Yellow (P-Yellow)
[2019-12-22] MEDS ORDERED: HYDACE25S PR (20:12)
[2019-12-22] MEDS ORDERED: Miralax17 GM PO (20:12)
== END 2019-12-22 20:47 | disposition home or self-care (01) ==
LOC: CT 16:21 → ER 16:21 → EDSTATUS 16:30 → CT 16:30 → ER 20:47
PROVIDERS: Physician Assistant
DX: K64.8 Other hemorrhoids (principal); K59.00 Constipation, unspecified; Z88.0 Allergy status to penicillin; Z88.1 Allergy status to other antibiotic agents; Z88.8 Allergy status to other drugs, medicaments and biological substances; Z79.899 Other long term (current) drug therapy; G20 Parkinson's disease
CPT/HCPCS: 74177; 80053; 81003; 81025; 83690; 85025; 96374; 99283-25; J2550; Q9967

== ENCOUNTER → 2020-03-28 | Outpatient (CLI) | payer BC ==
[~2020-03-28] MED LIST changes: +HYDACE25S PR; +Miralax17 GM PO
== END ==
LOC: LAB EV 15:39 → LAB SHORT 15:39
DX: L08.9 Local infection of the skin and subcutaneous tissue, unspecified (principal)
CPT/HCPCS: 87070; 87205

== ENCOUNTER → 2020-04-25 | Outpatient (CLI) | payer BC ==
[2020-04-27 16:23] LABS: CORONAVIRUS (COVID19) CSH-NRL Negative (Negative)
== END | disposition home or self-care (01) ==
LOC: LAB SHORT 10:27
PROVIDERS: Physician Assistant
DX: R05 Cough (principal); Z20.828 Contact with and (suspected) exposure to other viral communicable diseases
CPT/HCPCS: U0003

== ENCOUNTER 2020-05-29 10:07 | Emergency (ER) | payer BC, MEDICARE ==
[~2020-05-29] VITALS: Ht 157.5 cm; Wt 85.7 kg
[2020-05-29] MEDS ORDERED: MELO7.5 (10:25)
[2020-05-29] MEDS ORDERED: DULOXETINE HCL60 M1 PO (10:25)
[2020-05-29] MEDS ORDERED: MYCOPHENOLATE PO (10:26)
[2020-05-29] MEDS ORDERED: TOPI25 PO (10:27)
[2020-05-29 12:02] LABS: Source, Urine Catheter
[2020-05-29 12:09] LABS: Bilirubin, Urine Neg (Neg); Blood, Urine Neg (Neg); Glucose Qualitative, Urine Neg (Neg); Ketones, Urine Neg (Neg); Leukocyte Esterase, Urine Neg (Neg); Nitrite, Urine Neg (Neg); Protein, Urine Neg (Neg); Urobilinogen, Urine NORM (Normal)
[2020-05-29 12:11] LABS: Alanine Aminotransfer (ALT/SGP 19 U/L (12-78); Albumin, Blood 3.9 g/dL (3.4-5.0); Albumin/Globulin Ratio 1.2 (0.8-1.8); Alk Phos 40 U/L (50-136); Anion Gap 4 mmol/L (6-16); Aspartate Aminotrans (AST/SGOT 18 U/L (12-37); Bilirubin, Total 0.2 mg/dL (0.1-1.0); Blood Urea Nitrogen 14 mg/dL (8-24); Bun/Creatinine Ratio 18.4 (12.0-20.0); CO2, Blood 27 mmol/L (21-32); Chloride, Blood 111 mmol/L (98-108); Creatinine, Blood 0.76 mg/dL (0.40-1.00); Globulin, Blood 3.2 g/dL (2.2-4.0); Glomerular Filtration Rate >60 (60-); Glucose, Blood 95 mg/dL (70-99); Potassium, Blood 3.8 mmol/L (3.5-5.5); Sodium, Blood 142 mmol/L (136-145); Total Protein, Blood 7.1 g/dL (6.4-8.2)
[2020-05-29 12:14] LABS: Appearance, Urine Clear (Clear); Color, Urine Yellow (P-Yellow)
[2020-05-29 12:20] LABS: BASOPHILS ABSOLUTE AUTO 0.03 K/mm3 (0.00-0.23); BASOPHILS PERCENT AUTO 1 % (0-2); EOSINOPHILS PERCENT AUTO 2 % (0-6); Hematocrit 38.6 % (33.0-51.0); Hemoglobin 11.9 g/dL (11.5-16.0); IMMATURE GRAN ABSOLUTE AUTO 0.02 K/mm3 (0.00-0.10); IMMATURE GRAN PERCENT AUTO 0 % (0-1); LYMPHOCYTES PERCENT AUTO 20 % (21-46); MONOCYTES ABSOLUTE AUTO 0.29 K/mm3 (0.16-1.47); MONOCYTES PERCENT AUTO 5 % (4-13); Mean Corpuscular HGB 28.5 pg (26.0-34.0); Mean Corpuscular HGB Conc 30.8 g/dL (31.5-36.5); Mean Corpuscular Volume 93 fL (80-100); Mean Platelet Volume 9.6 fL (9.1-12.4); NEUTROPHILS ABSOLUTE AUTO 3.88 K/mm3 (1.96-9.15); NEUTROPHILS PERCENT AUTO 72 % (41-73); Platelet Count 272 K/mm3 (150-400); RDW Coefficient Variation 12.5 % (11.7-14.2); RDW Standard Deviation 42.8 fL (35.1-46.3); Red Blood Cell Count 4.17 M/mm3 (3.80-5.20); White Blood Cell Count 5.42 K/mm3 (4.00-11.30)
[2020-05-29] MEDS ORDERED: Diflucan200 MG PO (13:16)
== END 2020-05-29 14:30 | disposition home or self-care (01) ==
LOC: ER 10:07
PROVIDERS: Emergency Medicine
DX: J02.9 Acute pharyngitis, unspecified (principal); Z79.899 Other long term (current) drug therapy; Z88.0 Allergy status to penicillin; Z88.1 Allergy status to other antibiotic agents; Z88.8 Allergy status to other drugs, medicaments and biological substances
CPT/HCPCS: 36415; 80053; 81003; 85025; 99283

== ENCOUNTER 2020-06-29 19:05 | Observation (INO) | payer BC, MEDICARE ==
[~2020-06-29] VITALS: Ht 157.5 cm; Wt 83.9 kg
[~2020-06-29 19:05] MED LIST changes: +DULOXETINE HCL60 M1 PO; +Diflucan200 MG PO; +MELO7.5 PO; +MYCO250 PO; -OXYC1TAB11; +OXYCODONE-ACET1 EAC2 PO; +TIZA4 PO; -TIZANIDINE HCL4 MG PO; +TOPI25 PO
[2020-06-29 20:15] LABS: BASOPHILS ABSOLUTE AUTO 0.02 K/mm3 (0.00-0.23); BASOPHILS PERCENT AUTO 0 % (0-2); EOSINOPHILS ABSOLUTE AUTO 0.07 K/mm3 (0.00-0.68); EOSINOPHILS PERCENT AUTO 1 % (0-6); Hematocrit 37.1 % (33.0-51.0); Hemoglobin 11.8 g/dL (11.5-16.0); IMMATURE GRAN ABSOLUTE AUTO 0.02 K/mm3 (0.00-0.10); IMMATURE GRAN PERCENT AUTO 0 % (0-1); LYMPHOCYTES ABSOLUTE AUTO 1.84 K/mm3 (0.84-5.20); LYMPHOCYTES PERCENT AUTO 31 % (21-46); MONOCYTES ABSOLUTE AUTO 0.28 K/mm3 (0.16-1.47); MONOCYTES PERCENT AUTO 5 % (4-13); Mean Corpuscular HGB 28.9 pg (26.0-34.0); Mean Corpuscular HGB Conc 31.8 g/dL (31.5-36.5); Mean Corpuscular Volume 91 fL (80-100); Mean Platelet Volume 9.6 fL (9.1-12.4); NEUTROPHILS ABSOLUTE AUTO 3.76 K/mm3 (1.96-9.15); NEUTROPHILS PERCENT AUTO 63 % (41-73); Platelet Count 297 K/mm3 (150-400); RDW Coefficient Variation 12.3 % (11.7-14.2); RDW Standard Deviation 40.7 fL (35.1-46.3); Red Blood Cell Count 4.09 M/mm3 (3.80-5.20); White Blood Cell Count 5.99 K/mm3 (4.00-11.30)
[2020-06-29 20:36] LABS: Alanine Aminotransfer (ALT/SGP 24 U/L (12-78); Albumin, Blood 4.3 g/dL (3.4-5.0); Albumin/Globulin Ratio 1.3 (0.8-1.8); Alk Phos 40 U/L (50-136); Anion Gap 7 mmol/L (6-16); Aspartate Aminotrans (AST/SGOT 20 U/L (12-37); Bilirubin, Total 0.3 mg/dL (0.1-1.0); Blood Urea Nitrogen 15 mg/dL (8-24); Bun/Creatinine Ratio 20.9 (12.0-20.0); CO2, Blood 24 mmol/L (21-32); Chloride, Blood 107 mmol/L (98-108); Creatinine, Blood 0.72 mg/dL (0.40-1.00); Globulin, Blood 3.3 g/dL (2.2-4.0); Glomerular Filtration Rate >60 (60-); Glucose, Blood 94 mg/dL (70-99); Magnesium, Blood 2.3 mg/dL (1.6-2.4); Potassium, Blood 3.6 mmol/L (3.5-5.5); Sodium, Blood 138 mmol/L (136-145); Total Protein, Blood 7.6 g/dL (6.4-8.2)
[2020-06-29 23:04] LABS: Source, Urine Clean Catch
[2020-06-29 23:06] LABS: Appearance, Urine Clear (Clear); Bilirubin, Urine Neg (Neg); Blood, Urine Neg (Neg); Color, Urine Yellow (P-Yellow); Glucose Qualitative, Urine Neg (Neg); Ketones, Urine Neg (Neg); Leukocyte Esterase, Urine Neg (Neg); Nitrite, Urine Neg (Neg); Protein, Urine Neg (Neg); Urobilinogen, Urine NORM (Normal)
[2020-06-29 23:51] LABS: International Normalized Ratio 1.02; Prothrombin Time Results 10.9 Sec (9.7-11.5)
[2020-06-30 01:14] LABS: Influenza A, PCR Negative (NEGATIVE); Influenza B, PCR Negative (NEGATIVE); Resp Syncytial Virus, PCR Negative (NEGATIVE); SARS-Cov-2 (COVID-19) PCR, MMC Negative (NEGATIVE)
[2020-06-30] MEDS ORDERED: FURO20 PO (03:23)
--- NOTE | 2020-06-30 04:25 | NUR ---
CALLED DR. FORD REGARDING THE GI PANEL IS NO LONGER ABLE TO BE ORDERED OR SENT OUT. TEST HAVE TO BE INDIVIDUALLY ORDERED. HE SAID HE WILL TAKE CARE OF IT.
[2020-06-30 04:49] LABS: BASOPHILS ABSOLUTE AUTO 0.03 K/mm3 (0.00-0.23); BASOPHILS PERCENT AUTO 0 % (0-2); EOSINOPHILS ABSOLUTE AUTO 0.14 K/mm3 (0.00-0.68); EOSINOPHILS PERCENT AUTO 2 % (0-6); Hematocrit 35.8 % (33.0-51.0); Hemoglobin 11.1 g/dL (11.5-16.0); IMMATURE GRAN ABSOLUTE AUTO 0.04 K/mm3 (0.00-0.10); IMMATURE GRAN PERCENT AUTO 1 % (0-1); LYMPHOCYTES ABSOLUTE AUTO 2.24 K/mm3 (0.84-5.20); LYMPHOCYTES PERCENT AUTO 26 % (21-46); MONOCYTES PERCENT AUTO 6 % (4-13); Mean Corpuscular HGB 28.5 pg (26.0-34.0); Mean Corpuscular Volume 92 fL (80-100); Mean Platelet Volume 9.4 fL (9.1-12.4); NEUTROPHILS ABSOLUTE AUTO 5.82 K/mm3 (1.96-9.15); NEUTROPHILS PERCENT AUTO 66 % (41-73); Platelet Count 277 K/mm3 (150-400); RDW Coefficient Variation 12.6 % (11.7-14.2); RDW Standard Deviation 42.4 fL (35.1-46.3); White Blood Cell Count 8.77 K/mm3 (4.00-11.30)
[2020-06-30 05:10] LABS: Alanine Aminotransfer (ALT/SGP 19 U/L (12-78); Albumin, Blood 3.8 g/dL (3.4-5.0); Albumin/Globulin Ratio 1.3 (0.8-1.8); Alk Phos 43 U/L (50-136); Anion Gap 11 mmol/L (6-16); Aspartate Aminotrans (AST/SGOT 12 U/L (12-37); Bilirubin, Total 0.4 mg/dL (0.1-1.0); Blood Urea Nitrogen 13 mg/dL (8-24); Bun/Creatinine Ratio 18.2 (12.0-20.0); CO2, Blood 19 mmol/L (21-32); Calcium, Blood 8.8 mg/dL (8.5-10.1); Chloride, Blood 111 mmol/L (98-108); Creatinine, Blood 0.72 mg/dL (0.40-1.00); Globulin, Blood 2.9 g/dL (2.2-4.0); Glomerular Filtration Rate >60 (60-); Glucose, Blood 131 mg/dL (70-99); Sodium, Blood 141 mmol/L (136-145); Total Protein, Blood 6.7 g/dL (6.4-8.2)
--- NOTE | 2020-06-30 06:52 | NUR ---
SHIFT SUMMARY; KEYLA WAS ADMITTED TO THE FLOOR LAST NIGHT FOR RIGHT SIDED WEAKNESS. ARRIVED VIA GURNEY, TRANSFERRED USING SLIDER SHEET. REPORTS SHE HAS HAD PEA-SOUP DIARRHEA FOR LAST MONTH, IN THE LAST WEEK INCREASE IN CONFUSION, FATIQUED, FEVER OF 102, NAUSEA AND VOMITING, SOME BLOOD IN STOOL AND VOMIT. YESTERDAY SHE NOTICED SHE STARTED TO HAVE RIGHT FACIAL NUMBNESS THEN DROOP, DIFFICULTY TALKING, THEN HEAVINESS TO THE RIGHT SIDE OF HER BODY. BROUGHT HER INTO THE ER. KEYLA IS AOX3, SHE HAS RIGHT FACIAL DROOP, SLURRED SPEECH, SOMETIMES A STUDDER TO SHE IS NOT ABLE TO GET HER WORDS OUT. TONGUE DIVIATES TO THE RIGHT. UNABLE TO LIFT HER RIGHT SHOULDER OR DO FINGER THUMB TOUCH. PUPILS ARE REACTIVE TO LIGHT, NO HEADACHE OR VISION CHANGES, NUMBNESS DOWN THE RIGHT SIDE ALONG WITH HEAVINESS. SYMPTOMS SEEM TO COME AND GO SHE WAS ABLE TO REACH WITH HER RIGHT ARM TO BEDSIDE FOR HER PHONE, AND HER SPEECH CLEARED WHEN WE WERE DOING HER HISTORY. LATER THE SYMPTOMS CAME BACK. LEFT GREAT TOE IS SLIGHTLY RED AROUND THE EDGES OF THE TOE NAIL, TENDER AND SLIGHT SWELLING. PAIN HAS BEEN 4/10. GAVE ONE DOSE OF FENTANYL THIS AM. SHE HAD 1 THING OF JELLO AND IMMEDIATLY HAD TO GET UP TO HAVE A BOWEL MOVEMENT WHICH WAS VERY LOOSE, GREEN PEA-SOUP WITH WHAT LOOKED LIKE LEAVES. THIS CAUSED HER NAUSEA AND ABDOMINAL PAIN TO RETURN. WHEN SHE GOT UP SHE WAS ABLE TO PULL HER SELF TO THE SIDE OF BED AND STAND WITH VERY LITTLE ASSISTANCE, BUT WAS WEAK WHEN DOING BABY STEPS. GAVE ORDERED MEDICATION AND STARTED IVF NS. VS WNL, AFEBRILE. TELE SINUS. CALLS APPROPRIATLY. WILL REPORT TO DAYSHIFT.
[2020-06-30] MEDS ORDERED: LOPE2C PO (15:57)
[2020-06-30] MEDS ORDERED: PROM25 PO (15:58)
--- NOTE | 2020-06-30 17:14 | NUR ---
Shift Summary/Discharge Summary A/Ox3. Pleasant and cooperative. Patient had an episode of dystonia this AM, muscles were stiff and cramping. Medicated per EMAR with good relief. Patient reports that this occurs frequently at home but is adequately controlled with home meds. Medicated for pain x 2, nausea x 2 with good effect. Poor appetite. Had OT/PT. Able to make needs known. Continues to have greenish diarrhea per patient report, medicated x 2 with Imodium. Discharge to home. Reviewed discharge paperwork with patient, no questions at this time. Meds faxed. Copy of d/c paperwork provided. IV removed, WNL. Personal belongings will be sent home. to pick up driver patient. Will be escorted by CASH POSTING REPRESENTATIVE via personal w/c.
--- NOTE | 2020-06-30 21:34 | NUR ---
ADMIT: 06/29/19 DISCHARGE: 06/30/20 DX: right side weakness CC: cpeabody ROXANA CALL: Met with Cuca prior to discharge, call her at home for roxana. Prefer telehealth. RESIDENCE: home with CAREGIVER: Emergency contact: ROSALIE NASH (SPOUSE) DX: chronic constipation, chronic pain, chronic stress disorder, lupus, depression, see list. See's BHU at [facility]. DME: self cath., wheelchair, walker, cane, bathroom aids, ramp. CCM: no record HOME HEALTH: 06/30/19 ordered [facility] home health PT, order to [facility]. SUMMARY: Admit 06/29/20 Discharge 06/30/20 home with . new meds to be called into pharmacy if needed. Has good insurance coverage for meds and Medical. No additional dme items needed. Has additional care at home 24 hours a day. Discussed [facility] transition of care call within 48 hours for follow up on condition and schedule f/u appointment. Would like Telehealth visit. ASSESSMENT: 1. 40-year-old female presenting with constellation of symptoms to include possible left great toe infection, diarrhea, and right-sided weakness. She is being admitted for a possible stroke given the right-sided weakness.
[2020-10-01] MEDS ORDERED: VALA500 PO (12:00)
[2020-10-01] MEDS ORDERED: VALACYCLOVIR1000 M1 PO (12:00)
== END 2020-06-30 17:42 | disposition home or self-care (01) ==
LOC: ER 19:05 → MEDS 19:06 → ER 06-30 01:23 → MEDS 06-30 01:23
PROVIDERS: Emergency Medicine; Physician Assistant; ADMIT Internal Medicine
DX: R53.1 Weakness (principal); R19.7 Diarrhea, unspecified; M32.9 Systemic lupus erythematosus, unspecified; L60.0 Ingrowing nail; E66.9 Obesity, unspecified; Z79.899 Other long term (current) drug therapy; Z68.34 Body mass index [BMI] 34.0-34.9, adult; Z88.1 Allergy status to other antibiotic agents; Z88.0 Allergy status to penicillin; Z88.8 Allergy status to other drugs, medicaments and biological substances; Z86.59 Personal history of other mental and behavioral disorders; Z20.822 Contact with and (suspected) exposure to COVID-19; Z86.69 Personal history of other diseases of the nervous system and sense organs
CPT/HCPCS: 0241U; 36415; 70450; 70496; 70498; 70551; 71045; 73630; 80053; 81003; 83735; 85025; 85610; 85730; 93005; 93010; 93306; 96361; 96372; 96374-59; 96375; 96375-59; 96376; 96376-59; 97116; 97162; 97166; 97530; 97535; 99285-25; A9270; G0378; J1170; J1650; J2550; J2765; J3010; J7030; J7120; J7517; Q9967

== ENCOUNTER 2020-11-24 07:46 | Emergency (ER) | payer BC, MEDICARE ==
[~2020-11-24] VITALS: Ht 157.5 cm; Wt 83.9 kg
[~2020-11-24 07:46] MED LIST changes: +FURO20 PO; +LOPE2C PO; +VALA500 PO; +VALACYCLOVIR1000 M1 PO
[2020-11-24 08:35] LABS: Source, Urine Clean Catch
[2020-11-24 08:43] LABS: Appearance, Urine Clear (Clear); Blood, Urine Neg (Neg); Color, Urine Amber (P-Yellow); Glucose Qualitative, Urine Neg (Neg); Ketones, Urine Neg (Neg); Leukocyte Esterase, Urine Neg (Neg); Nitrite, Urine Pos (Neg); Protein, Urine Neg (Neg); Specific Gravity, Urine 1.015 (1.003-1.022); Urobilinogen, Urine 2+ (Normal)
[2020-11-24 08:50] LABS: Bilirubin, Urine 1+ (Neg)
[2020-11-24 08:52] LABS: Red Blood Cells, Urine 0-2 /hpf (0-2); Squamous Epithelial Cells Many /hpf (Few)
[2020-11-24] MEDS ORDERED: OMEP20ER PO (08:52)
[2020-11-24 08:53] LABS: Bacteria Few /hpf
[2020-11-24] MEDS ORDERED: Rituxan10 MG/ML IV (08:53)
[2020-11-24] MEDS ORDERED: FAMO20 PO (12:04)
[2020-11-24] MEDS ORDERED: EPIPEN0.3 MG/0.1 IJ (12:04)
[2020-11-24] MEDS ORDERED: CEFP200 PO (12:04)
[2020-11-24] MEDS ORDERED: BENADRYL25 M1 PO (12:04)
== END 2020-11-24 12:31 | disposition home or self-care (01) ==
LOC: ER 07:46
PROVIDERS: Emergency Medicine
DX: T39.8X1A Poisoning by other nonopioid analgesics and antipyretics, not elsewhere classified, accidental (unintentional), initial encounter (principal); T78.2XXA Anaphylactic shock, unspecified, initial encounter; Z88.0 Allergy status to penicillin; Z88.1 Allergy status to other antibiotic agents; Z88.8 Allergy status to other drugs, medicaments and biological substances; Z79.899 Other long term (current) drug therapy
CPT/HCPCS: 36415; 81001; 87077; 87086; 87147; 87186; 94640; 94760; 96372-59; 96374; 96375; 96376; 99285-25; J0171; J0696; J1200; J2765; J2930; J3360

== ENCOUNTER → 2021-01-19 | Outpatient (CLI) | payer BC, MEDICARE ==
[~2021-01-19] MED LIST changes: +BENADRYL25 M1 PO; +CEFP200 PO; +EPIPEN0.3 MG/0.1 IJ; +FAMO20 PO; +OMEP20ER PO; +Rituxan10 MG/ML IV
[2021-01-19 09:13] LABS: BASOPHILS ABSOLUTE AUTO 0.02 K/mm3 (0.00-0.23); BASOPHILS PERCENT AUTO 0 % (0-2); EOSINOPHILS ABSOLUTE AUTO 0.18 K/mm3 (0.00-0.68); EOSINOPHILS PERCENT AUTO 4 % (0-6); Hematocrit 34.8 % (33.0-51.0); Hemoglobin 11.4 g/dL (11.5-16.0); IMMATURE GRAN ABSOLUTE AUTO 0.02 K/mm3 (0.00-0.10); IMMATURE GRAN PERCENT AUTO 0 % (0-1); LYMPHOCYTES PERCENT AUTO 22 % (21-46); MONOCYTES ABSOLUTE AUTO 0.23 K/mm3 (0.16-1.47); MONOCYTES PERCENT AUTO 5 % (4-13); Mean Corpuscular HGB 29.8 pg (26.0-34.0); Mean Corpuscular HGB Conc 32.8 g/dL (31.5-36.5); Mean Corpuscular Volume 91 fL (80-100); Mean Platelet Volume 9.9 fL (9.1-12.4); NEUTROPHILS ABSOLUTE AUTO 3.44 K/mm3 (1.96-9.15); NEUTROPHILS PERCENT AUTO 69 % (41-73); Platelet Count 271 K/mm3 (150-400); RDW Coefficient Variation 13.2 % (11.7-14.2); RDW Standard Deviation 43.2 fL (35.1-46.3); Red Blood Cell Count 3.83 M/mm3 (3.80-5.20); White Blood Cell Count 4.99 K/mm3 (4.00-11.30)
[2021-01-19 09:27] LABS: Alanine Aminotransfer (ALT/SGP 19 U/L (12-78); Albumin, Blood 4.2 g/dL (3.4-5.0); Albumin/Globulin Ratio 1.4 (0.8-1.8); Alk Phos 34 U/L (40-126); Anion Gap 13 mmol/L (6-16); Aspartate Aminotrans (AST/SGOT 12 U/L (12-37); Bilirubin, Total 0.3 mg/dL (0.1-1.0); Blood Urea Nitrogen 16 mg/dL (8-24); Bun/Creatinine Ratio 17.4 (12.0-20.0); CO2, Blood 23 mmol/L (21-32); Calcium, Blood 8.2 mg/dL (8.5-10.1); Chloride, Blood 106 mmol/L (98-108); Creatinine, Blood 0.92 mg/dL (0.40-1.00); Glomerular Filtration Rate >60 (60-); Glucose, Blood 105 mg/dL (70-99); Potassium, Blood 3.7 mmol/L (3.5-5.5); Sodium, Blood 142 mmol/L (136-145); Total Protein, Blood 7.2 g/dL (6.4-8.2)
== END | disposition home or self-care (01) ==
LOC: LAB SHORT 09:04 → LAB 09:04
PROVIDERS: Chiropractor
DX: E86.0 Dehydration (principal); N39.0 Urinary tract infection, site not specified
CPT/HCPCS: 80053; 85025; 87086

== ENCOUNTER → 2021-02-24 | Outpatient (CLI) | payer BC, MEDICARE | END | disposition home or self-care (01) | LOC: LAB 10:39 → LAB SHORT 10:39 | DX: N39.0 Urinary tract infection, site not specified (principal) | CPT/HCPCS: 87077; 87086; 87186 ==

== ENCOUNTER → 2021-03-07 | Outpatient (CLI) | payer BC, MEDICARE ==
[2021-03-07 18:46] LABS: Source, Urine Clean Catch
[2021-03-07 18:58] LABS: Appearance, Urine Clear (Clear); Bilirubin, Urine Neg (Neg); Blood, Urine Neg (Neg); Color, Urine Yellow (P-Yellow); Glucose Qualitative, Urine Neg (Neg); Ketones, Urine Neg (Neg); Leukocyte Esterase, Urine Neg (Neg); Nitrite, Urine Pos (Neg); Protein, Urine Neg (Neg); Urobilinogen, Urine 1+ (Normal)
[2021-03-07 19:21] LABS: Mucus Mod (0-Heavy); Red Blood Cells, Urine 0-2 /hpf (0-2); Squamous Epithelial Cells Few /hpf (Few); White Blood Cells, Urine 0-2 /hpf (0-5)
[2021-03-07 19:22] LABS: Amorphous Light (0-Heavy); Bacteria Mod /hpf
== END | disposition home or self-care (01) ==
LOC: LAB SHORT 16:46
PROVIDERS: Nurse Practitioner Family
DX: R30.9 Painful micturition, unspecified (principal)
CPT/HCPCS: 81001; 87077; 87086; 87186

== ENCOUNTER → 2021-03-25 | Outpatient (CLI) | payer BC, MEDICARE | END | disposition home or self-care (01) | LOC: LAB SHORT 08:12 → LAB 08:12 | DX: N39.0 Urinary tract infection, site not specified (principal) | CPT/HCPCS: 87086 ==

== ENCOUNTER → 2021-04-19 | Outpatient (CLI) | payer BC, MEDICARE | END | disposition home or self-care (01) | LOC: LAB SHORT 09:02 | DX: N39.0 Urinary tract infection, site not specified (principal) | CPT/HCPCS: 87086 ==

== ENCOUNTER → 2021-06-15 | Outpatient (CLI) | payer BC, MEDICARE | END | disposition home or self-care (01) | LOC: LAB SHORT 15:37 | DX: N12 Tubulo-interstitial nephritis, not specified as acute or chronic (principal) | CPT/HCPCS: 87086 ==

== ENCOUNTER → 2021-10-26 | Outpatient (CLI) | payer BC, MEDICARE | END | disposition home or self-care (01) | LOC: LAB 14:15 → LAB SHORT 14:15 | DX: N39.0 Urinary tract infection, site not specified (principal) | CPT/HCPCS: 87086 ==

== ENCOUNTER 2021-12-06 09:46 | Day surgery (SDC) | payer BC, MEDICARE ==
[~2021-12-06] VITALS: Ht 154.9 cm; Wt 64.5 kg
[~2021-12-06 09:46] MED LIST changes: +ABILIFY MYCITE2 M2 PO; +ALBU2.5V5 INH; +Ativan1 MG PO; +EPIPEN0.3 MG/0.3 IM; +IMITREX50 MG PO; +MOBIC15 MG PO; +MYCOPHENOLATE PO; +NAPR500 PO; +Ondansetron Odt8 MG MM; +PERCOCET 10-321 EA12 PO; +SERT50 PO; +YAZ 28 TABLET1 EAC1 PO; +ZYRTEC10 M2 PO; +[UNRECOGNIZED DRUG - OTHER] SC
== END 2021-12-06 12:14 | disposition home or self-care (01) ==
LOC: ORSCSDS 09:46
PROVIDERS: Student in an Organized Health Care Education/Training Program
PROC: 0DB98ZX Excision of Duodenum, Via Natural or Artificial Opening Endoscopic, Diagnostic (ICD-10-PCS; principal; 2021-12-06 11:00)
PROC: 0DB78ZX Excision of Stomach, Pylorus, Via Natural or Artificial Opening Endoscopic, Diagnostic (ICD-10-PCS; principal; 2021-12-06 11:00)
PROC: 0DBN8ZX Excision of Sigmoid Colon, Via Natural or Artificial Opening Endoscopic, Diagnostic (ICD-10-PCS; principal; 2021-12-06 11:00)
PROC: 0DB48ZX Excision of Esophagogastric Junction, Via Natural or Artificial Opening Endoscopic, Diagnostic (ICD-10-PCS; principal; 2021-12-06 11:00)
DX: R10.9 Unspecified abdominal pain (principal); R11.2 Nausea with vomiting, unspecified; R63.4 Abnormal weight loss; R10.32 Left lower quadrant pain; K59.00 Constipation, unspecified; K57.30 Diverticulosis of large intestine without perforation or abscess without bleeding; K63.5 Polyp of colon; K64.4 Residual hemorrhoidal skin tags; L93.0 Discoid lupus erythematosus; M06.9 Rheumatoid arthritis, unspecified; J45.909 Unspecified asthma, uncomplicated; Z79.899 Other long term (current) drug therapy
CPT/HCPCS: 88305; 88342; J2250; J2405; J2550; J2704

== ENCOUNTER 2022-06-22 12:10 | Emergency (ER) | payer MEDICARE, BC ==
[~2022-06-22] VITALS: Ht 157.5 cm; Wt 63.5 kg
[2022-06-22 13:37] LABS: BASOPHILS ABSOLUTE AUTO 0.02 K/mm3 (0.00-0.23); BASOPHILS PERCENT AUTO 1 % (0-2); EOSINOPHILS ABSOLUTE AUTO 0.12 K/mm3 (0.00-0.68); EOSINOPHILS PERCENT AUTO 3 % (0-6); Hematocrit 36.8 % (33.0-51.0); Hemoglobin 12.1 g/dL (11.5-16.0); IMMATURE GRAN ABSOLUTE AUTO 0.02 K/mm3 (0.00-0.10); IMMATURE GRAN PERCENT AUTO 1 % (0-1); LYMPHOCYTES ABSOLUTE AUTO 0.61 K/mm3 (0.84-5.20); LYMPHOCYTES PERCENT AUTO 15 % (21-46); MONOCYTES ABSOLUTE AUTO 0.39 K/mm3 (0.16-1.47); MONOCYTES PERCENT AUTO 9 % (4-13); Mean Corpuscular HGB 30.1 pg (26.0-34.0); Mean Corpuscular HGB Conc 32.9 g/dL (31.5-36.5); Mean Corpuscular Volume 92 fL (80-100); Mean Platelet Volume 9.5 fL (9.1-12.4); NEUTROPHILS ABSOLUTE AUTO 2.97 K/mm3 (1.96-9.15); NEUTROPHILS PERCENT AUTO 72 % (41-73); Platelet Count 297 K/mm3 (150-400); RDW Coefficient Variation 12.1 % (11.7-14.2); RDW Standard Deviation 40.7 fL (35.1-46.3); Red Blood Cell Count 4.02 M/mm3 (3.80-5.20); White Blood Cell Count 4.13 K/mm3 (4.00-11.30)
[2022-06-22 14:27] LABS: Albumin, Blood 3.8 g/dL (3.4-5.0); Albumin/Globulin Ratio 1.1 (0.8-1.8); Bilirubin, Total 0.3 mg/dL (0.1-1.0); Bun/Creatinine Ratio 20.6 (12.0-20.0); Calcium, Blood 9.2 mg/dL (8.5-10.1); Creatinine, Blood 0.78 mg/dL (0.40-1.00); Globulin, Blood 3.4 g/dL (2.2-4.0); Potassium, Blood 4.1 mmol/L (3.5-5.5); Total Protein, Blood 7.2 g/dL (6.4-8.2)
[2022-06-22] MEDS ORDERED: PROM25 PO (15:39)
[2022-06-22] MEDS ORDERED: AMOCLA875 PO (15:39)
== END 2022-06-22 15:53 | disposition home or self-care (01) ==
LOC: ER 12:10
PROVIDERS: Student in an Organized Health Care Education/Training Program
DX: J18.9 Pneumonia, unspecified organism (principal); F32.A Depression, unspecified; Z88.0 Allergy status to penicillin; Z88.1 Allergy status to other antibiotic agents; Z88.8 Allergy status to other drugs, medicaments and biological substances; Z79.899 Other long term (current) drug therapy
CPT/HCPCS: 36415; 71260; 80053; 84484; 85025; J1885; J2550; Q9967

== ENCOUNTER 2022-08-07 17:22 | Inpatient (IN) | payer BC, MEDICARE ==
[~2022-08-07] VITALS: Ht 162.6 cm; Wt 56.7 kg
[~2022-08-07 17:22] MED LIST changes: +AMOCLA875 PO
[2022-08-07 18:16] LABS: BASOPHILS ABSOLUTE AUTO 0.02 K/mm3 (0.00-0.23); BASOPHILS PERCENT AUTO 0 % (0-2); EOSINOPHILS ABSOLUTE AUTO 0.08 K/mm3 (0.00-0.68); EOSINOPHILS PERCENT AUTO 1 % (0-6); Hematocrit 37.6 % (33.0-51.0); Hemoglobin 12.2 g/dL (11.5-16.0); IMMATURE GRAN ABSOLUTE AUTO 0.02 K/mm3 (0.00-0.10); IMMATURE GRAN PERCENT AUTO 0 % (0-1); LYMPHOCYTES ABSOLUTE AUTO 0.91 K/mm3 (0.84-5.20); LYMPHOCYTES PERCENT AUTO 14 % (21-46); MONOCYTES ABSOLUTE AUTO 0.35 K/mm3 (0.16-1.47); MONOCYTES PERCENT AUTO 5 % (4-13); Mean Corpuscular HGB 29.6 pg (26.0-34.0); Mean Corpuscular HGB Conc 32.4 g/dL (31.5-36.5); Mean Corpuscular Volume 91 fL (80-100); Mean Platelet Volume 9.5 fL (9.1-12.4); NEUTROPHILS ABSOLUTE AUTO 5.16 K/mm3 (1.96-9.15); NEUTROPHILS PERCENT AUTO 79 % (41-73); Platelet Count 303 K/mm3 (150-400); RDW Standard Deviation 42.5 fL (35.1-46.3); Red Blood Cell Count 4.12 M/mm3 (3.80-5.20); White Blood Cell Count 6.54 K/mm3 (4.00-11.30)
[2022-08-07 18:33] LABS: Albumin, Blood 3.9 g/dL (3.4-5.0); Albumin/Globulin Ratio 1.1 (0.8-1.8); Bilirubin, Total 0.2 mg/dL (0.1-1.0); Bun/Creatinine Ratio 28.8 (12.0-20.0); Calcium, Blood 8.8 mg/dL (8.5-10.1); Creatinine, Blood 0.73 mg/dL (0.40-1.00); Globulin, Blood 3.4 g/dL (2.2-4.0); Potassium, Blood 3.8 mmol/L (3.5-5.5); Total Protein, Blood 7.3 g/dL (6.4-8.2)
[2022-08-08 06:29] LABS: Hematocrit 33.9 % (33.0-51.0); Hemoglobin 11.2 g/dL (11.5-16.0); Mean Corpuscular HGB 29.9 pg (26.0-34.0); Mean Corpuscular Volume 90 fL (80-100); Mean Platelet Volume 9.7 fL (9.1-12.4); Platelet Count 263 K/mm3 (150-400); RDW Standard Deviation 42.5 fL (35.1-46.3); Red Blood Cell Count 3.75 M/mm3 (3.80-5.20)
--- NOTE | 2022-08-08 06:32 | NUR ---
PATIENT ALERT AND ORIENTED X4, RIGHT SIDE RESIDUAL, RECEPTIVE ASPHASIA, ATAXIA, ROOM AIR, 20 RIGHT AC, PATIENT COMPLAINED OF PAIN TOWARDS END OF SHIFT CALLED DR AND RECEIVED ORDERS FOR FENTANYL Q4, PT STATES PAIN IS NOW CONTROLLED. NO EVENTS OVERNIGHT, MRI SCHEDULED FOR TODAY, SPEECH EVAL TODAY, PT EVAL TODAY, PT ABLE TO USE BEDSIDE COMMODE WITH ONE PERSON ASSIST
[2022-08-08 07:13] LABS: Albumin, Blood 3.2 g/dL (3.4-5.0); Albumin/Globulin Ratio 1.1 (0.8-1.8); Bilirubin, Total 0.2 mg/dL (0.1-1.0); Bun/Creatinine Ratio 25.7 (12.0-20.0); Calcium, Blood 8.3 mg/dL (8.5-10.1); Creatinine, Blood 0.66 mg/dL (0.40-1.00); Potassium, Blood 3.7 mmol/L (3.5-5.5); Total Protein, Blood 6.2 g/dL (6.4-8.2)
--- NOTE | 2022-08-08 18:33 | NUR ---
SHIFT SUMMARY A&Ox4, COOPERATIVE, SLOW TO RESPOND R/T EXPRESSIVE APHASIA. MRI COMPLETED TODAY WITH NO FINDINGS. PT, OT, AND ST LORENE COMPLETED. ST PERFORMED A BARIUM SWALLOW. MECHANICAL SOFT DIET D/T R SIDED ATAXIA AND NUMBNESS. PT COMPLAINED OF NECK, SHOULDER, BACK AND JOINT PAIN T/O SHIFT. HEATING PAD IS HELPING. PT HAS APAP, ROXYCODONE, AND DILAUDID FOR PAIN. SHE IS ABLE TO EXPRESS WHEN PAIN MEDS ARE NEEDED. DR CHOU ORDERED A HEAD CT FOR THE MORNING AND WILL SEE PT FIRST THING IN THE MORNING. NO ACUTE EVENTS NOTED DURING THIS SHIFT. PATIENT CURRENTLY RESTING WITH CALL LIGHT IN REACH.
--- NOTE | 2022-08-09 04:13 | NUR ---
SHIFT SUMMARY ADMITTED FOR STROKE-LIKE SYMPTOMS. FULL CODE. PLAN IS FOR HEAD CT. TELEMETRY: NSR @ 76 BPM. 1 ASSIST-BSC. SOFT-BITE SIZE DIET. PAIN AND ANXIETY MEDICATION GIVEN THIS SHIFT. PT STATES SHE IS EXTREMELY ANXIOUS AND PAINFUL. PHYSICAL, OCCUPATIONAL, AND SPEECH THERAPIES ASSISTING.
[2022-08-09 05:28] LABS: BASOPHILS ABSOLUTE AUTO 0.02 K/mm3 (0.00-0.23); BASOPHILS PERCENT AUTO 0 % (0-2); EOSINOPHILS ABSOLUTE AUTO 0.17 K/mm3 (0.00-0.68); EOSINOPHILS PERCENT AUTO 3 % (0-6); Hematocrit 35.5 % (33.0-51.0); Hemoglobin 11.4 g/dL (11.5-16.0); IMMATURE GRAN ABSOLUTE AUTO 0.03 K/mm3 (0.00-0.10); IMMATURE GRAN PERCENT AUTO 1 % (0-1); LYMPHOCYTES PERCENT AUTO 23 % (21-46); MONOCYTES ABSOLUTE AUTO 0.33 K/mm3 (0.16-1.47); MONOCYTES PERCENT AUTO 6 % (4-13); Mean Corpuscular HGB 29.6 pg (26.0-34.0); Mean Corpuscular HGB Conc 32.1 g/dL (31.5-36.5); Mean Corpuscular Volume 92 fL (80-100); Mean Platelet Volume 9.7 fL (9.1-12.4); NEUTROPHILS ABSOLUTE AUTO 3.78 K/mm3 (1.96-9.15); NEUTROPHILS PERCENT AUTO 67 % (41-73); Platelet Count 271 K/mm3 (150-400); RDW Standard Deviation 43.5 fL (35.1-46.3); Red Blood Cell Count 3.85 M/mm3 (3.80-5.20); White Blood Cell Count 5.63 K/mm3 (4.00-11.30)
[2022-08-09 05:45] LABS: Magnesium, Blood 2.2 mg/dL (1.6-2.4)
[2022-08-09 06:17] LABS: Albumin, Blood 3.1 g/dL (3.4-5.0); Bilirubin, Total 0.2 mg/dL (0.1-1.0); Bun/Creatinine Ratio 29.1 (12.0-20.0); Calcium, Blood 8.4 mg/dL (8.5-10.1); Creatinine, Blood 0.72 mg/dL (0.40-1.00); Globulin, Blood 3.2 g/dL (2.2-4.0); Phosphorus, Blood 2.5 mg/dL (2.5-4.9); Potassium, Blood 3.8 mmol/L (3.5-5.5); Total Protein, Blood 6.3 g/dL (6.4-8.2)
--- NOTE | 2022-08-09 17:58 | NUR ---
SHIFT SUMMARY PT AWAKE AT START OF SHIFT, CALLING FOR MEDICATIONS. PT CALLED FREQUENTLY ALL DAY LONG. DR CHOU IN TO SEE PT THIS AM, INCREASING MEDICATIONS THUR OUT THE DAY. PT CALLING CONSTANTLY FOR ANYTHING AVAILABLE. REPORTED R SIDED PAIN AND STIFFNESS, BUT USING ALL EXTREMITIES TO EAT AND DRINK. PT GIVEN MEDICATIONS AVAILABLE AND CAN'T REMEMBER THAT SHE WAS JUST MEDICATED. IV ACCESS LOST DURING IMAGING WITH CONTRAST. NEW IV PLACED BY ASHLYN RN. PT WANTED TO WAIT FOR NEW IV ACCESS UNTIL AFTER NAP AND THEN SHOWER. PT LATER DECIDED, AFTER WAKING FROM NAP THAT SHE WOULD NOT TAKE A SHOWER TODAY. AT BS MOST OF DAY. SPEECH CLEAR AND TALKING NORMALLY WHEN DR CHOU NOT IN RM. EEG TO BE DONE AT 07:30-08:00 IN AM. TECH REQUESTED PT TO CHAIR FOR LEAD PLACEMENT AND THEN BACK TO BED FOR TEST. TO COME IN AM TO ASSIST PT WITH TX'S. SITTING UP IN BED EATING DINNER. ADDITIONAL MEDS BEING GIVEN AT THIS TIME. CALL LT IN REACH.
--- NOTE | 2022-08-09 21:00 | NUR ---
PATIENT HAVING REACTION TO DILAUDID. SEVERE RASH AND ITCHING. CALLED DR GARCIA ORDERS GIVEN TO D/C DILAUDID AND GIVE FENTANYL INSTEAD
--- NOTE | 2022-08-10 05:06 | NUR ---
PATIENT HEAD OF SALES KAYE CONTINUOUSLY DEMANDING MEDICATIONS AROUND THE CLOCK. PATIENT WANTS TIMES MEDICATIONS GIVEN AND TIME NEXT DOSE DUE WRITTEN DOWN SO THAT SHE CAN CALL STAFF AT THOSE TIMES FOR MEDICATIONS.
--- NOTE | 2022-08-10 11:07 | NUR ---
pt just finished eeg, gave all am meds at this time. states she's having 9/10 pain, roxicodone given, asked her to call if any other needs. spouce in room with her, call light in reach.
--- NOTE | 2022-08-10 18:38 | NUR ---
pt has done better today, she had a shower, and has required less medications than previously. spouce has been at bedside most of the day, and assisted with care, no further changes this shift. call light in reach.
[2022-08-11 05:51] LABS: BASOPHILS ABSOLUTE AUTO 0.01 K/mm3 (0.00-0.23); BASOPHILS PERCENT AUTO 0 % (0-2); EOSINOPHILS ABSOLUTE AUTO 0.12 K/mm3 (0.00-0.68); EOSINOPHILS PERCENT AUTO 3 % (0-6); Hematocrit 34.5 % (33.0-51.0); Hemoglobin 11.2 g/dL (11.5-16.0); IMMATURE GRAN ABSOLUTE AUTO 0.02 K/mm3 (0.00-0.10); IMMATURE GRAN PERCENT AUTO 1 % (0-1); LYMPHOCYTES ABSOLUTE AUTO 0.93 K/mm3 (0.84-5.20); LYMPHOCYTES PERCENT AUTO 22 % (21-46); MONOCYTES ABSOLUTE AUTO 0.32 K/mm3 (0.16-1.47); MONOCYTES PERCENT AUTO 8 % (4-13); Mean Corpuscular HGB 29.6 pg (26.0-34.0); Mean Corpuscular HGB Conc 32.5 g/dL (31.5-36.5); Mean Corpuscular Volume 91 fL (80-100); Mean Platelet Volume 9.5 fL (9.1-12.4); NEUTROPHILS ABSOLUTE AUTO 2.83 K/mm3 (1.96-9.15); NEUTROPHILS PERCENT AUTO 67 % (41-73); Platelet Count 243 K/mm3 (150-400); RDW Coefficient Variation 12.9 % (11.7-14.2); RDW Standard Deviation 42.5 fL (35.1-46.3); Red Blood Cell Count 3.78 M/mm3 (3.80-5.20); White Blood Cell Count 4.23 K/mm3 (4.00-11.30)
[2022-08-11 06:20] LABS: Anion Gap 6 mmol/L (6-16); Blood Urea Nitrogen 18 mg/dL (8-24); Bun/Creatinine Ratio 25.5 (12.0-20.0); CO2, Blood 24 mmol/L (21-32); Calcium, Blood 8.3 mg/dL (8.5-10.1); Chloride, Blood 110 mmol/L (98-108); Creatinine, Blood 0.71 mg/dL (0.40-1.00); Glomerular Filtration Rate 109 (60-); Glucose, Blood 104 mg/dL (70-99); Phosphorus, Blood 3.1 mg/dL (2.5-4.9); Potassium, Blood 3.7 mmol/L (3.5-5.5); Sodium, Blood 140 mmol/L (136-145)
--- NOTE | 2022-08-11 06:44 | NUR ---
PATIENT HAD A MUCH BETTER NIGHT. MEDICATED AROUND THE CLOCK BUT PATIENT ONLY ASKED FOR FENTANYL AT BEGINNING OF SHIFT. PATIENT POSSIBLE D/C HOME TODAY. PATIENTS STATED THAT THEY WERE GOING TO GO TO [facility] EMERGENCY ROOM SO THAT SHE COULD SEE A NEUROLOGIST SINCE WE WILL NOT TRANSFER PATIENT THERE.
[2022-08-11] MEDS ORDERED: Oxycodone HCl20 M1 PO ×2 (09:49)
[2022-08-11] MEDS ORDERED: PROM25 PO ×2 (09:50)
[2022-08-11] MEDS ORDERED: SENN187 PO ×2 (09:50)
[2022-08-11] MEDS ORDERED: MIRALAX17 GM PO ×2 (09:50)
--- NOTE | 2022-08-11 12:32 | NUR ---
Discharge Summary A/Ox4, pleasant/cooperative. Drowsy today. Medicated x 1 this AM for generalized pain per EMAR. D/C to home with [place], TONIO to follow up with faxing face sheet to facility. Reviewed d/c papers, no questions at this time. Meds faxed, hard script x 2 photocopied and originals given to patient. Escorted by CHILD CARE DEVELOPMENT SPECIALIST via w/c. Belongings sent home.
== END 2022-08-11 10:57 | disposition home health service (06) | DRG 57 ==
LOC: ER 17:22 → MEDS 17:23
PROVIDERS: Family Medicine; Student in an Organized Health Care Education/Training Program; ADMIT Internal Medicine
DX: G81.91 Hemiplegia, unspecified affecting right dominant side (principal); R47.01 Aphasia; G25.9 Extrapyramidal and movement disorder, unspecified; G93.40 Encephalopathy, unspecified; F11.10 Opioid abuse, uncomplicated; M32.9 Systemic lupus erythematosus, unspecified; M05.20 Rheumatoid vasculitis with rheumatoid arthritis of unspecified site; G21.4 Vascular parkinsonism; R47.81 Slurred speech; R27.0 Ataxia, unspecified; G51.0 Bell's palsy; R13.10 Dysphagia, unspecified; F43.10 Post-traumatic stress disorder, unspecified; F41.1 Generalized anxiety disorder; F32.A Depression, unspecified; G43.909 Migraine, unspecified, not intractable, without status migrainosus; G89.29 Other chronic pain; R47.1 Dysarthria and anarthria; Z88.0 Allergy status to penicillin; Z98.890 Other specified postprocedural states; Z90.710 Acquired absence of both cervix and uterus; Z90.49 Acquired absence of other specified parts of digestive tract; Z88.8 Allergy status to other drugs, medicaments and biological substances; Z88.1 Allergy status to other antibiotic agents; Z79.899 Other long term (current) drug therapy; Z79.51 Long term (current) use of inhaled steroids; Z79.891 Long term (current) use of opiate analgesic
CPT/HCPCS: 36415; 70450; 70496; 70498; 70551; 70553; 74230; 80053; 80069; 82330; 83735; 84100; 85025; 85027; 92526; 92610; 92611; 93005; 93010; 95819; 96372; 96374; 96375; 96376; 97110; 97112; 97161; 97166; 97530; 99285-25; A9270; A9579; G0378; J1170; J1200; J1650; J2060; J2550; J3010; J7517; Q9967

== ENCOUNTER → 2022-08-18 | Outpatient (CLI) | payer BC, MEDICARE ==
[~2022-08-18] MED LIST changes: +MIRALAX17 GM PO; +Oxycodone HCl20 M1 PO; +SENN187 PO
== END | disposition home or self-care (01) ==
LOC: LAB SHORT 18:39 → LAB 18:39
DX: B37.32 Chronic candidiasis of vulva and vagina (principal)
CPT/HCPCS: 87070; 87205

== ENCOUNTER → 2022-11-17 | Outpatient (CLI) | payer BC, MEDICARE ==
[2022-11-17 12:08] LABS: Source, Urine Voided
[2022-11-17 12:16] LABS: Appearance, Urine Clear (Clear); Bilirubin, Urine Neg (Neg); Blood, Urine Neg (Neg); Color, Urine Yellow (P-Yellow); Glucose Qualitative, Urine Neg (Neg); Ketones, Urine Neg (Neg); Leukocyte Esterase, Urine Neg (Neg); Nitrite, Urine Neg (Neg); Protein, Urine Neg (Neg); Specific Gravity, Urine 1.015 (1.003-1.022); Urobilinogen, Urine NORM (Normal); pH, Urine 6.5 (5.0-8.0)
== END | disposition home or self-care (01) ==
LOC: LAB 11:40 → LAB SHORT 11:40
PROVIDERS: Nurse Practitioner Family
DX: N39.0 Urinary tract infection, site not specified (principal)
CPT/HCPCS: 81003

== ENCOUNTER 2023-03-29 04:26 | Emergency (ER) | payer BC, MEDICARE ==
[~2023-03-29] VITALS: Ht 162.6 cm; Wt 59.0 kg
[2023-03-29 04:28] VITALS: BP 113/84
[2023-03-29] MEDS ORDERED: AZIT250 PO (05:27)
== END 2023-03-29 05:33 | disposition home or self-care (01) ==
LOC: ER 04:26
DX: J02.0 Streptococcal pharyngitis (principal); M06.9 Rheumatoid arthritis, unspecified; E24.9 Cushing's syndrome, unspecified; G20.C Parkinsonism, unspecified; Z88.0 Allergy status to penicillin; Z88.8 Allergy status to other drugs, medicaments and biological substances; Z88.5 Allergy status to narcotic agent; Z88.1 Allergy status to other antibiotic agents; Z79.899 Other long term (current) drug therapy
CPT/HCPCS: 87081; 87430; 99283

== ENCOUNTER 2023-12-22 23:19 | Emergency (ER) | payer BC, MEDICARE ==
[~2023-12-22] VITALS: Ht 154.9 cm; Wt 74.8 kg
[~2023-12-22 23:19] MED LIST changes: +AZIT250 PO
[2023-12-22 23:57] VITALS: BP 148/78
== END 2023-12-22 23:58 | disposition home or self-care (01) ==
LOC: ER 23:19
DX: F41.9 Anxiety disorder, unspecified (principal); F43.10 Post-traumatic stress disorder, unspecified; G43.909 Migraine, unspecified, not intractable, without status migrainosus; Z79.899 Other long term (current) drug therapy; Z88.5 Allergy status to narcotic agent; Z88.0 Allergy status to penicillin; Z88.1 Allergy status to other antibiotic agents; Z91.048 Other nonmedicinal substance allergy status; Z88.8 Allergy status to other drugs, medicaments and biological substances
CPT/HCPCS: 99284

== ENCOUNTER → 2023-12-31 | Outpatient (CLI) | payer BC, MEDICARE ==
[2023-12-31 13:51] LABS: BASOPHILS ABSOLUTE AUTO 0.03 K/mm3 (0.00-0.23); BASOPHILS PERCENT AUTO 1 % (0-2); EOSINOPHILS ABSOLUTE AUTO 0.33 K/mm3 (0.00-0.68); EOSINOPHILS PERCENT AUTO 7 % (0-6); Hematocrit 34.2 % (33.0-51.0); Hemoglobin 11.2 g/dL (11.5-16.0); IMMATURE GRAN ABSOLUTE AUTO 0.04 K/mm3 (0.00-0.10); IMMATURE GRAN PERCENT AUTO 1 % (0-1); LYMPHOCYTES PERCENT AUTO 14 % (21-46); MONOCYTES ABSOLUTE AUTO 0.46 K/mm3 (0.16-1.47); MONOCYTES PERCENT AUTO 9 % (4-13); Mean Corpuscular HGB 29.7 pg (26.0-34.0); Mean Corpuscular HGB Conc 32.7 g/dL (31.5-36.5); Mean Corpuscular Volume 91 fL (80-100); Mean Platelet Volume 9.5 fL (9.1-12.4); NEUTROPHILS PERCENT AUTO 69 % (41-73); Platelet Count 287 K/mm3 (150-400); RDW Coefficient Variation 13.4 % (11.7-14.2); Red Blood Cell Count 3.77 M/mm3 (3.80-5.20); White Blood Cell Count 4.96 K/mm3 (4.00-11.30)
== END | disposition home or self-care (01) ==
LOC: LAB SHORT 13:46 → LAB 13:46
PROVIDERS: Family Medicine
DX: R09.89 Other specified symptoms and signs involving the circulatory and respiratory systems (principal)
CPT/HCPCS: 85025

== ENCOUNTER → 2024-04-08 | Outpatient (CLI) | payer BC, MEDICARE | LOC: LAB 15:50 → LAB SHORT 15:50 | DX: N39.0 Urinary tract infection, site not specified (principal) | CPT/HCPCS: 87086 ==

== ENCOUNTER → 2024-07-01 | Outpatient (CLI) | payer BC, MEDICARE | LOC: LAB SHORT 18:24 → LAB 18:24 | DX: T81.89XA Other complications of procedures, not elsewhere classified, initial encounter (principal) | CPT/HCPCS: 87070; 87205 ==

== ENCOUNTER → 2024-07-07 | Outpatient (CLI) | payer BC, MEDICARE | LOC: LAB SHORT 14:25 → LAB 14:25 | DX: N39.0 Urinary tract infection, site not specified (principal); R31.9 Hematuria, unspecified | CPT/HCPCS: 87077; 87086; 87186 ==

== ENCOUNTER 2024-07-14 05:26 | Emergency (ER) | payer BC, MEDICARE ==
[~2024-07-14] VITALS: Ht 154.9 cm; Wt 61.2 kg
[2024-07-14] MEDS ORDERED: Ondansetron HCl 2 MG / ML 2ML Vial IV ONE (06:30)
[2024-07-14 06:32] LABS: Source, Urine Clean Catch
[2024-07-14 06:35] LABS: Bilirubin, Urine Neg (Neg); Blood, Urine Neg (Neg); Glucose Qualitative, Urine Neg (Neg); Ketones, Urine Neg (Neg); Leukocyte Esterase, Urine Neg (Neg); Nitrite, Urine Neg (Neg); Protein, Urine Neg (Neg); Urobilinogen, Urine NORM (Normal)
[2024-07-14] MEDS ORDERED: DiphenhydrAMINE HCl 50 MG/ML 1ML Vial IV ONE ×2 (06:35→09:35)
[2024-07-14] MEDS ORDERED: Morphine Sulfate 4 MG/1 ML Injection IV ONE ×2 (06:35→07:40)
[2024-07-14 06:39] LABS: Appearance, Urine Clear (Clear); Color, Urine Yellow (P-Yellow)
[2024-07-14] MEDS ORDERED: NS 1,000 ML IV SCH ×2 (07:40→10:15)
[2024-07-14 07:50] LABS: BASOPHILS ABSOLUTE AUTO 0.03 K/mm3 (0.00-0.23); BASOPHILS PERCENT AUTO 1 % (0-2); EOSINOPHILS ABSOLUTE AUTO 0.37 K/mm3 (0.00-0.68); EOSINOPHILS PERCENT AUTO 10 % (0-6); Hematocrit 30.9 % (33.0-51.0); Hemoglobin 10.5 g/dL (11.5-16.0); IMMATURE GRAN ABSOLUTE AUTO 0.01 K/mm3 (0.00-0.10); IMMATURE GRAN PERCENT AUTO 0 % (0-1); LYMPHOCYTES ABSOLUTE AUTO 0.97 K/mm3 (0.84-5.20); LYMPHOCYTES PERCENT AUTO 25 % (21-46); MONOCYTES ABSOLUTE AUTO 0.38 K/mm3 (0.16-1.47); MONOCYTES PERCENT AUTO 10 % (4-13); Mean Corpuscular HGB 29.5 pg (26.0-34.0); Mean Corpuscular Volume 87 fL (80-100); Mean Platelet Volume 9.3 fL (9.1-12.4); NEUTROPHILS ABSOLUTE AUTO 2.13 K/mm3 (1.96-9.15); NEUTROPHILS PERCENT AUTO 55 % (41-73); Platelet Count 277 K/mm3 (150-400); RDW Coefficient Variation 12.2 % (11.7-14.2); RDW Standard Deviation 39.3 fL (35.1-46.3); Red Blood Cell Count 3.56 M/mm3 (3.80-5.20); White Blood Cell Count 3.89 K/mm3 (4.00-11.30)
[2024-07-14 08:10] LABS: Albumin, Blood 3.6 g/dL (3.4-5.0); Albumin/Globulin Ratio 1.3 (0.8-1.8); Bilirubin, Total 0.3 mg/dL (0.1-1.0); Bun/Creatinine Ratio 16.4 (12.0-20.0); Calcium, Blood 8.7 mg/dL (8.5-10.1); Creatinine, Blood 0.79 mg/dL (0.40-1.00); Globulin, Blood 2.7 g/dL (2.2-4.0); Potassium, Blood 3.3 mmol/L (3.5-5.5); Total Protein, Blood 6.3 g/dL (6.4-8.2)
[2024-07-14] MEDS ORDERED: Potassium Chl 20MEQ/Water100ML 100 ML IV ONE (09:00)
[2024-07-14] MEDS ORDERED: Ertapenem Sodium 1,000 MG in NS 50 ML IV ONE (09:15)
[2024-07-14] MEDS ORDERED: HYDROmorphone HCl/Pf 1MG SYR IV ONE (09:35)
[2024-07-14 09:45] LABS: Influenza A, PCR NEGATIVE (NEGATIVE); Influenza B, PCR NEGATIVE (NEGATIVE); Resp Syncytial Virus, PCR NEGATIVE (NEGATIVE); SARS-Cov-2 (COVID-19) PCR, MMC NEGATIVE (NEGATIVE)
[2024-07-14] MEDS ORDERED: LORazepam 2 MG/ML 1ML Injection IV ONE (10:45)
[2024-07-14] MEDS ORDERED: Promethazine HCl 25 MG Tab PO ONE (11:35)
[2024-07-14] MEDS ORDERED: Ketorolac Tromethamine 15mg Vial IV ONE (11:35)
[2024-07-14] MEDS ORDERED: OxyCODONE HCL 5 MG TAB PO ONE (11:35)
[2024-07-14] MEDS ORDERED: PROM25 PO (12:32)
[2024-07-14 13:00] VITALS: BP 99/67
== END 2024-07-14 13:13 | disposition home or self-care (01) ==
LOC: ER 05:26
PROVIDERS: Emergency Medicine
DX: N39.0 Urinary tract infection, site not specified (principal); B96.29 Other Escherichia coli [E. coli] as the cause of diseases classified elsewhere; F43.10 Post-traumatic stress disorder, unspecified; Z79.899 Other long term (current) drug therapy; Z88.5 Allergy status to narcotic agent; Z91.048 Other nonmedicinal substance allergy status; Z88.0 Allergy status to penicillin; Z88.1 Allergy status to other antibiotic agents; Z88.8 Allergy status to other drugs, medicaments and biological substances
CPT/HCPCS: 0241U; 36415; 70450; 80053; 81003; 83605; 83735; 85025; 87040; 96361; 96365; 96366; 96375; 96376; 99284-25; A9270; J1171; J1200; J1335; J1642; J1885; J2060; J2270; J2405; J3480; J7030

== ENCOUNTER 2024-07-15 07:58 | Day surgery (SDC) | payer BC, MEDICARE ==
[~2024-07-15 07:58] MED LIST changes: +Ertapenem Sodium 1,000 MG in NS 50 ML IV SCH
[2024-07-15] MEDS ORDERED: DiphenhydrAMINE HCl 50 MG/ML 1ML Vial IV ONE (08:50)
== END 2024-07-15 09:37 | disposition home or self-care (01) ==
LOC: ATC 07:58
DX: N30.11 Interstitial cystitis (chronic) with hematuria (principal); Z16.12 Extended spectrum beta lactamase (ESBL) resistance; M32.9 Systemic lupus erythematosus, unspecified; M06.9 Rheumatoid arthritis, unspecified; F43.10 Post-traumatic stress disorder, unspecified; G20.A1 Parkinson's disease without dyskinesia, without mention of fluctuations; Z88.5 Allergy status to narcotic agent; Z88.0 Allergy status to penicillin; Z88.1 Allergy status to other antibiotic agents; Z88.8 Allergy status to other drugs, medicaments and biological substances; Z91.048 Other nonmedicinal substance allergy status; Z90.710 Acquired absence of both cervix and uterus
CPT/HCPCS: 96365; 96375; J1200; J1335; J1642

== ENCOUNTER 2024-07-16 02:49 | Day surgery (SDC) | payer BC, MEDICARE ==
[~2024-07-16 02:49] MED LIST changes: -Ertapenem Sodium 1,000 MG in NS 50 ML IV SCH
[2024-07-16] MEDS ORDERED: Ertapenem Sodium 1,000 MG in NS 50 ML IV SCH (06:00)
[2024-07-16] MEDS ORDERED: DiphenhydrAMINE HCl 50 MG/ML 1ML Vial IV SCH (07:05)
[2024-07-16 08:42] VITALS: BP 112/87
--- NOTE | 2024-07-16 17:50 | NUR ---
PCP KRYSTIN LOPEZ EQUIPMENT COORDINATOR CALLED AT 0915 THIS MORNING TO UPDATE PROVIDER OF PATIENTS STATUS. LAMONT TOOK MESSAGE AND PLACED IT BACK URGENTLY FOR THE PROVIDER TO REVIEW. LAMONT STATED THE PROVIDER WOULD BE CALLING BACK TODAY. OF 1754 PROVIDER HAS NOT CALLED BACK. CALLED PT AT 1755 AND PT STATES THE PROVIDER HAS NOT CALLED HER AND PT IS STILL FEELING THE SAME. BELOW IS WHAT HAS BEEN GOING ON WITH PT: PT RECEIVED DOSE OF ABX 07/15/24 AT 0830. AT 1600 THAT NIGHT PT WAS HAVING SEVERE BACK PAIN 7/10 WITH URINARY URGENCY AND BLADDER SPASMS. PT STATES HER PAIN MEDICATION DID NOT TOUCH THE PAIN. SHE WAS ALSO VERY NAUSEATED. UPON ARRIVAL TO APPT AT TODAY (07/16/24) PT REPORTS THAT SHE FEELS LIKE SHE IS DECLINING INSTEAD OF GETTING BETTER. SHE STATED THAT THE ER HAD TOLD HER THAT IF SHE COULDN'T MANAGE HER SYMTOMS OF PAIN/NAUSEA AT HOME THAT SHE MAY NEED TO GO BACK TO THE ER AND THEY WOULD CONSIDER ADMITTING PT. PT STATES SHE WANTS TO AVOID GOING BACK TO THE ER AND BEING ADMITTED AND SHE WOULD LIKE TO WAIT ONE MORE DAY BEFORE GOING BACK TO THE ER. PT ALSO MENTIONED THAT GIVEN HER LUPUS DX THAT SHE FREQUENTLY NEEDS INCREASED DOSES OR LONGER DURATION OF THERAPIES FOR ADEQUATE TREATMENT. PT WOULD LIKE HER PCP TO BE MADE AWARE OF WHAT IS GOING ON AND FIND OUT IF WE NEED TO CHANGE HER COURSE OF THERAPY. I CALLED PHARMACIST DON AND SHE STATED THAT ERTAPENEM USUALLY STARTS TO IMPROVE SYMPTOMATIC PT'S BETWEEN 48 AND 72 HOURS. SHE ALSO STATED THAT THE DURATION OF THERAPY COULD RANGE FROM 5 DAYS TO 14 DAYS. IN MY MESSAGE TO KRYSTIN LOPEZ'S OFFICE I TOLD THEM ALL OF THE REPORTED SYMPTOMS FROM PT AND PT'S CONCERNS. WHEN PROVIDERS OFFICE CALLS BACK, I WAS GOING TO ASK IF ADDING DAILY FLUIDS WOULD HELP WITH HER PAIN AND HELP FLUSH HER KIDNEYS PT ALSO REPORTS NOT DRINKING MUCH FLUID AND POSSIBLY BEING DEHYDRATED. WILL HAVE RN'S CHECK BACK IN WITH PT AND PCP TOMORROW 07/17/23
== END 2024-07-16 09:21 | disposition home or self-care (01) ==
LOC: ATC 02:49
DX: N30.11 Interstitial cystitis (chronic) with hematuria (principal); B96.20 Unspecified Escherichia coli [E. coli] as the cause of diseases classified elsewhere; Z16.12 Extended spectrum beta lactamase (ESBL) resistance; M32.9 Systemic lupus erythematosus, unspecified; F43.10 Post-traumatic stress disorder, unspecified; G20.A1 Parkinson's disease without dyskinesia, without mention of fluctuations; Z88.0 Allergy status to penicillin; Z88.5 Allergy status to narcotic agent; Z88.1 Allergy status to other antibiotic agents; Z88.8 Allergy status to other drugs, medicaments and biological substances; Z91.048 Other nonmedicinal substance allergy status; Z79.899 Other long term (current) drug therapy; Z90.49 Acquired absence of other specified parts of digestive tract; Z90.710 Acquired absence of both cervix and uterus
CPT/HCPCS: J1200; J1335; J1642

== ENCOUNTER 2024-07-17 00:25 | Day surgery (SDC) | payer BC, MEDICARE ==
[2024-07-17] MEDS ORDERED: Ertapenem Sodium 1,000 MG in NS 50 ML IV SCH (01:00)
[2024-07-17] MEDS ORDERED: DiphenhydrAMINE HCl 50 MG/ML 1ML Vial IV SCH (06:55)
[2024-07-17 08:32] VITALS: BP 102/58
--- NOTE | 2024-07-17 08:57 | NUR ---
SPOKE WITH ROXIE BAH AT [facility] TO FOLLOW UP ON PATIENTS INQUIRY FOR IVF AND IF THEY WOULD HELP WITH INHIBITING HER REACTION TO THE MEDICATION. SHE SAYS THAT SHE NORMALLY RECIEVES IVF AT THE SAME TIME MEDICATIONS SHE IS SENSITIVE TO AND IT MAKES THE REACTION MORE BEARABLE. RELAYED THE MESSAGES TO THE NIURKA WHO SAID THAT ADDING IVF WOULD NOT HELP THE PATIENT IN THIS SCENARIO. SO NO NEW ORDERS PROVIDED. SHE ENCOURAGED THAT THE PATIENT RETURN TO THE ER IF THE PAIN AND REACTIONS CONTINUE. UPDATED THE PATIENT. PATIENT STATED HER UNDERSTANDING AND SAYS THAT SHE WANTS TO TRY TO STICK IT OUT WITHOUT GOING TO THE ER. ERTAPENEM RUNNING OVER 30 MINUTES RATHER THAN 15 TO SEE IF ITS MORE TOLERABLE
== END 2024-07-17 09:26 | disposition home or self-care (01) ==
LOC: ATC 00:25
DX: N30.11 Interstitial cystitis (chronic) with hematuria (principal); B96.20 Unspecified Escherichia coli [E. coli] as the cause of diseases classified elsewhere; Z16.12 Extended spectrum beta lactamase (ESBL) resistance; Z88.0 Allergy status to penicillin; Z88.1 Allergy status to other antibiotic agents; Z88.8 Allergy status to other drugs, medicaments and biological substances; Z79.899 Other long term (current) drug therapy
CPT/HCPCS: 96365; 96374; 96375; J1200; J1335; J1642

== ENCOUNTER 2024-07-20 03:48 | Day surgery (SDC) | payer BC, MEDICARE ==
[~2024-07-20 03:48] MED LIST changes: +Ertapenem Sodium 1,000 MG in NS 50 ML IV SCH
[2024-07-20] MEDS ORDERED: DiphenhydrAMINE HCl 50 MG/ML 1ML Vial IV SCH (06:45)
[2024-07-20 08:42] VITALS: BP 94/73
== END 2024-07-20 09:16 | disposition home or self-care (01) ==
LOC: ATC 03:48
DX: N30.11 Interstitial cystitis (chronic) with hematuria (principal); B96.20 Unspecified Escherichia coli [E. coli] as the cause of diseases classified elsewhere; Z16.12 Extended spectrum beta lactamase (ESBL) resistance; Z88.5 Allergy status to narcotic agent; Z88.1 Allergy status to other antibiotic agents; Z88.8 Allergy status to other drugs, medicaments and biological substances; Z79.899 Other long term (current) drug therapy
CPT/HCPCS: 96365; 96375; J1200; J1335; J1642

== ENCOUNTER 2024-07-21 01:26 | Day surgery (SDC) | payer BC, MEDICARE ==
[~2024-07-21 01:26] MED LIST changes: -Ertapenem Sodium 1,000 MG in NS 50 ML IV SCH
[2024-07-21] MEDS ORDERED: Ertapenem Sodium 1,000 MG in NS 50 ML IV SCH (06:00)
[2024-07-21] MEDS ORDERED: DiphenhydrAMINE HCl 50 MG/ML 1ML Vial IV SCH (07:05)
[2024-07-21 08:40] VITALS: BP 101/68
== END 2024-07-21 09:25 | disposition home or self-care (01) ==
LOC: ATC 01:26
DX: N30.11 Interstitial cystitis (chronic) with hematuria (principal); B96.20 Unspecified Escherichia coli [E. coli] as the cause of diseases classified elsewhere; Z16.12 Extended spectrum beta lactamase (ESBL) resistance; Z88.0 Allergy status to penicillin; Z88.8 Allergy status to other drugs, medicaments and biological substances; Z79.899 Other long term (current) drug therapy
CPT/HCPCS: 96365; 96375; J1200; J1335; J1642

== ENCOUNTER 2024-10-16 02:23 | Day surgery (SDC) | payer BC, MEDICARE ==
[2024-10-16] MEDS ORDERED: PILO5 PO (12:49)
[2024-10-16 12:50] VITALS: BP 123/80
== END 2024-10-16 12:58 | disposition home or self-care (01) ==
LOC: ATC 02:23
DX: Z45.2 Encounter for adjustment and management of vascular access device (principal); N30.11 Interstitial cystitis (chronic) with hematuria; B96.20 Unspecified Escherichia coli [E. coli] as the cause of diseases classified elsewhere; Z16.12 Extended spectrum beta lactamase (ESBL) resistance; Z88.1 Allergy status to other antibiotic agents; Z88.8 Allergy status to other drugs, medicaments and biological substances; Z79.899 Other long term (current) drug therapy
CPT/HCPCS: 96523; J1642

== ENCOUNTER 2024-11-28 03:26 | Day surgery (SDC) | payer BC, MEDICARE ==
[~2024-11-28 03:26] MED LIST changes: +PILO5 PO
== END 2024-11-28 14:47 | disposition home or self-care (01) ==
LOC: ATC 03:26
DX: Z45.2 Encounter for adjustment and management of vascular access device (principal); M06.9 Rheumatoid arthritis, unspecified; M32.9 Systemic lupus erythematosus, unspecified; M79.7 Fibromyalgia; Z79.899 Other long term (current) drug therapy; Z88.2 Allergy status to sulfonamides; Z88.8 Allergy status to other drugs, medicaments and biological substances
CPT/HCPCS: 96523; J1642

== ENCOUNTER → 2024-12-14 | Outpatient (CLI) | payer BC, MEDICARE | LOC: LAB SHORT 16:36 → LAB 16:36 | DX: N39.0 Urinary tract infection, site not specified (principal) | CPT/HCPCS: 87077; 87086; 87186 ==

== ENCOUNTER → 2024-12-18 | Outpatient (CLI) | payer BC, MEDICARE | LOC: LAB SHORT 18:28 → LAB 18:28 | DX: R30.0 Dysuria (principal) | CPT/HCPCS: 87086 ==

== ENCOUNTER 2025-01-27 07:02 | Day surgery (SDC) | payer BC, MEDICARE ==
[~2025-01-27] VITALS: Ht 157.5 cm; Wt 43.1 kg
[~2025-01-27 07:02] MED LIST changes: -PERCOCET 10-321 EA12 PO; +Percocet 10-321 EACH PO
[2025-01-27 07:22] VITALS: BP 104/76
--- NOTE | 2025-01-27 07:28 | NUR ---
DR BACA, ANETHESIOLOGIST IN ROOM DISUSSING PLAN OF CARE FOR PROCEDURE.
[2025-01-27] MEDS ORDERED: Ondansetron HCl 2 MG / ML 2ML Vial ONE (07:36)
[2025-01-27] MEDS ORDERED: Midazolam HCl 1MG / ML 2ML Vial ONE ×2 (07:47→09:55)
[2025-01-27] MEDS ORDERED: NS 1,000 ML IV ONE ×2 (07:47→08:33)
[2025-01-27] MEDS ORDERED: CeFAZolin Sodium 2,000 MG VIAL ONE (08:32)
[2025-01-27] MEDS ORDERED: NS 100 ML IV ONE (08:33)
[2025-01-27] MEDS ORDERED: Heparin Sodium 1000 Units/ML 10ML MDV ONE (08:48)
[2025-01-27 09:22] VITALS: BP 110/75
--- NOTE | 2025-01-27 09:22 | NUR ---
ASSUMED CARE FROM ANESTHESIA. PT ALERT TO VERBAL STIMULI. FAMILY AT BEDSIDE.
[2025-01-27 09:30] VITALS: BP 106/75
[2025-01-27 10:00] VITALS: BP 137/88
--- NOTE | 2025-01-27 10:00 | NUR ---
PT AWAKE AND VERBALIZING WELL. PT C/O BODY TREMORS. VERSED 1MG IVP GIVEN.
--- NOTE | 2025-01-27 10:36 | NUR ---
PT VERBLIZED UNDERSTANDING OF WRITTEN AND VERBAL D/C INST. IV REMOVED. PT STATES FEELS MUCH BETTER POST VERSED. NEG TREMORS. PT UP TO W/C /C SBA. IV REMOVED. PT TAKEN OUT OF THE HRT CENTER VIA W/C.
== END 2025-01-27 23:00 | disposition home or self-care (01) ==
LOC: MHTC 07:02 → ORD 07:30 → ORSCMMR 07:30 → MHTC 23:00
DX: T82.594A Other mechanical complication of infusion catheter, initial encounter (principal); M06.9 Rheumatoid arthritis, unspecified; F43.10 Post-traumatic stress disorder, unspecified; Z79.899 Other long term (current) drug therapy; Z88.8 Allergy status to other drugs, medicaments and biological substances; Z88.0 Allergy status to penicillin; Z88.1 Allergy status to other antibiotic agents; Z90.49 Acquired absence of other specified parts of digestive tract; Z90.710 Acquired absence of both cervix and uterus
CPT/HCPCS: 36598; J0690; J1642; J1644; J2250; J2405; J2704; J7030; Q9967

== ENCOUNTER 2025-02-06 23:09 | Emergency (ER) | payer BC, MEDICARE ==
[~2025-02-06] VITALS: Ht 157.5 cm; Wt 41.3 kg
[2025-02-06] MEDS ORDERED: Ondansetron HCl 2 MG / ML 2ML Vial IV PRN (23:25)
[2025-02-06 23:52] LABS: BASOPHILS ABSOLUTE AUTO 0.03 K/mm3 (0.00-0.23); BASOPHILS PERCENT AUTO 1 % (0-2); EOSINOPHILS ABSOLUTE AUTO 0.13 K/mm3 (0.00-0.68); EOSINOPHILS PERCENT AUTO 4 % (0-6); Hematocrit 29.3 % (33.0-51.0); Hemoglobin 10.0 g/dL (11.5-16.0); IMMATURE GRAN ABSOLUTE AUTO 0.01 K/mm3 (0.00-0.10); IMMATURE GRAN PERCENT AUTO 0 % (0-1); LYMPHOCYTES ABSOLUTE AUTO 1.04 K/mm3 (0.84-5.20); LYMPHOCYTES PERCENT AUTO 33 % (21-46); MONOCYTES ABSOLUTE AUTO 0.29 K/mm3 (0.16-1.47); MONOCYTES PERCENT AUTO 9 % (4-13); Mean Corpuscular HGB Conc 34.1 g/dL (31.5-36.5); Mean Corpuscular Volume 91 fL (80-100); NEUTROPHILS ABSOLUTE AUTO 1.65 K/mm3 (1.96-9.15); NEUTROPHILS PERCENT AUTO 52 % (41-73); NRBC ABSOLUTE 0.00 K/mm3 (0.00-0.02); NRBC Auto 0.0 /100 WBC (0.0-0.2); Platelet Count 217 K/mm3 (150-400); RDW Coefficient Variation 12.9 % (11.7-14.2); RDW Standard Deviation 42.6 fL (35.1-46.3)
[2025-02-07 00:14] LABS: Alanine Aminotransfer (ALT/SGP 37.0 U/L (12-78); Albumin, Blood 3.9 g/dL (3.4-5.0); Albumin/Globulin Ratio 1.5 (0.8-1.8); Anion Gap 8.0 mmol/L (3-11); Aspartate Aminotrans (AST/SGOT 25.0 U/L (12-37); Bilirubin, Total 0.3 mg/dL (0.1-1.0); Blood Urea Nitrogen 17.0 mg/dL (8-24); CO2, Blood 24.0 mmol/L (21-32); Calcium, Blood 8.7 mg/dL (8.5-10.1); Chloride, Blood 111.0 mmol/L (98-108); Creatinine, Blood 0.92 mg/dL (0.40-1.00); Globulin, Blood 2.6 g/dL (2.2-4.0); Glucose, Blood 94.0 mg/dL (70-99); Potassium, Blood 4.3 mmol/L (3.5-5.5); Sodium, Blood 139.0 mmol/L (136-145); Total Protein, Blood 6.5 g/dL (6.4-8.2)
[2025-02-07] MEDS ORDERED: NS 1,000 ML IV SCH ×2 (04:25→06:20)
[2025-02-07] MEDS ORDERED: DiphenhydrAMINE HCl 50 MG/ML 1ML Vial IV ONE (04:25)
[2025-02-07] MEDS ORDERED: FentaNYL Citrate 50 MCG/ML 2 ML Injection IV PRN (04:25)
[2025-02-07] MEDS ORDERED: Ketorolac Tromethamine 15mg Vial IV ONE (06:20)
[2025-02-07 08:52] VITALS: BP 111/76
== END 2025-02-07 09:01 | disposition home or self-care (01) ==
LOC: ER 23:09
PROVIDERS: Emergency Medicine
DX: R10.13 Epigastric pain (principal); R11.0 Nausea; F43.10 Post-traumatic stress disorder, unspecified; Z79.899 Other long term (current) drug therapy; Z88.0 Allergy status to penicillin; Z88.8 Allergy status to other drugs, medicaments and biological substances; Z88.1 Allergy status to other antibiotic agents
CPT/HCPCS: 71046; 80053; 83690; 84484; 85025; 93005; 93010; 96374; 96375; 96376; 99284-25; J1200; J1885; J2405; J3010; J7030

== ENCOUNTER 2025-02-25 04:17 | Day surgery (SDC) | payer BC, MEDICARE | END 2025-02-25 07:35 | disposition home or self-care (01) | LOC: ATC 04:17 | DX: Z45.2 Encounter for adjustment and management of vascular access device (principal); G43.909 Migraine, unspecified, not intractable, without status migrainosus; M79.7 Fibromyalgia; M19.90 Unspecified osteoarthritis, unspecified site; I73.00 Raynaud's syndrome without gangrene; K59.09 Other constipation; J30.1 Allergic rhinitis due to pollen; J30.81 Allergic rhinitis due to animal (cat) (dog) hair and dander; Z98.1 Arthrodesis status; Z88.0 Allergy status to penicillin; Z88.1 Allergy status to other antibiotic agents; Z88.8 Allergy status to other drugs, medicaments and biological substances; Z79.1 Long term (current) use of non-steroidal anti-inflammatories (NSAID); Z79.899 Other long term (current) drug therapy | CPT/HCPCS: 96523; J1642 ==

== ENCOUNTER → 2025-05-07 | Outpatient (CLI) | payer BC, MEDICARE ==
[2025-05-07 10:39] LABS: BASOPHILS ABSOLUTE AUTO 0.02 K/mm3 (0.00-0.23); BASOPHILS PERCENT AUTO 1 % (0-2); EOSINOPHILS ABSOLUTE AUTO 0.14 K/mm3 (0.00-0.68); EOSINOPHILS PERCENT AUTO 3 % (0-6); Hematocrit 30.7 % (33.0-51.0); Hemoglobin 10.3 g/dL (11.5-16.0); IMMATURE GRAN ABSOLUTE AUTO 0.05 K/mm3 (0.00-0.10); IMMATURE GRAN PERCENT AUTO 1 % (0-1); LYMPHOCYTES ABSOLUTE AUTO 0.44 K/mm3 (0.84-5.20); LYMPHOCYTES PERCENT AUTO 10 % (21-46); MONOCYTES ABSOLUTE AUTO 0.30 K/mm3 (0.16-1.47); MONOCYTES PERCENT AUTO 7 % (4-13); Mean Corpuscular HGB Conc 33.6 g/dL (31.5-36.5); Mean Corpuscular Volume 89 fL (80-100); NEUTROPHILS ABSOLUTE AUTO 3.33 K/mm3 (1.96-9.15); NEUTROPHILS PERCENT AUTO 78 % (41-73); NRBC ABSOLUTE 0.00 K/mm3 (0.00-0.02); NRBC Auto 0.0 /100 WBC (0.0-0.2); Platelet Count 227 K/mm3 (150-400); RDW Coefficient Variation 12.6 % (11.7-14.2); RDW Standard Deviation 40.8 fL (35.1-46.3)
[2025-05-07 10:48] LABS: Alanine Aminotransfer (ALT/SGP 25.0 U/L (12-78); Albumin, Blood 3.6 g/dL (3.4-5.0); Albumin/Globulin Ratio 1.2 (0.8-1.8); Anion Gap 13.0 mmol/L (6-16); Aspartate Aminotrans (AST/SGOT 19.0 U/L (12-37); Bilirubin, Total 0.2 mg/dL (0.1-1.0); Blood Urea Nitrogen 21.0 mg/dL (8-24); CO2, Blood 26.0 mmol/L (21-32); Calcium, Blood 8.1 mg/dL (8.5-10.1); Chloride, Blood 105.0 mmol/L (98-108); Creatinine, Blood 0.8 mg/dL (0.40-1.00); Globulin, Blood 3.0 g/dL (2.2-4.0); Glucose, Blood 101.0 mg/dL (70-99); Potassium, Blood 4.1 mmol/L (3.5-5.5); Sodium, Blood 140.0 mmol/L (136-145); Total Protein, Blood 6.6 g/dL (6.4-8.2)
== END ==
LOC: LAB 10:35 → LAB SHORT 10:35
PROVIDERS: Family Medicine
DX: R50.9 Fever, unspecified (principal)
CPT/HCPCS: 80053; 85025

== ENCOUNTER 2025-05-09 01:54 | Emergency (ER) | payer BC, MEDICARE ==
[~2025-05-09] VITALS: Ht 154.9 cm; Wt 43.5 kg
[2025-05-09] MEDS ORDERED: DiphenhydrAMINE HCl 50 MG/ML 1ML Vial IV ONE (03:55)
[2025-05-09] MEDS ORDERED: NS 1,000 ML IV SCH (04:00)
[2025-05-09 04:05] LABS: BASOPHILS ABSOLUTE AUTO 0.04 K/mm3 (0.00-0.23); BASOPHILS PERCENT AUTO 1 % (0-2); EOSINOPHILS ABSOLUTE AUTO 0.29 K/mm3 (0.00-0.68); EOSINOPHILS PERCENT AUTO 5 % (0-6); Hematocrit 29.4 % (33.0-51.0); Hemoglobin 10.0 g/dL (11.5-16.0); IMMATURE GRAN ABSOLUTE AUTO 0.06 K/mm3 (0.00-0.10); IMMATURE GRAN PERCENT AUTO 1 % (0-1); LYMPHOCYTES ABSOLUTE AUTO 1.12 K/mm3 (0.84-5.20); LYMPHOCYTES PERCENT AUTO 20 % (21-46); MONOCYTES ABSOLUTE AUTO 0.35 K/mm3 (0.16-1.47); MONOCYTES PERCENT AUTO 6 % (4-13); Mean Corpuscular HGB Conc 34.0 g/dL (31.5-36.5); Mean Corpuscular Volume 91 fL (80-100); NEUTROPHILS ABSOLUTE AUTO 3.71 K/mm3 (1.96-9.15); NEUTROPHILS PERCENT AUTO 67 % (41-73); NRBC ABSOLUTE 0.00 K/mm3 (0.00-0.02); NRBC Auto 0.0 /100 WBC (0.0-0.2); Platelet Count 251 K/mm3 (150-400); RDW Coefficient Variation 12.7 % (11.7-14.2); RDW Standard Deviation 42.3 fL (35.1-46.3)
[2025-05-09 04:15] LABS: Alanine Aminotransfer (ALT/SGP 29.0 U/L (12-78); Albumin, Blood 3.5 g/dL (3.4-5.0); Albumin/Globulin Ratio 1.2 (0.8-1.8); Anion Gap 9.0 mmol/L (3-11); Aspartate Aminotrans (AST/SGOT 31.0 U/L (12-37); Bilirubin, Total 0.3 mg/dL (0.1-1.0); Blood Urea Nitrogen 25.0 mg/dL (8-24); CO2, Blood 24.0 mmol/L (21-32); Calcium, Blood 8.5 mg/dL (8.5-10.1); Chloride, Blood 109.0 mmol/L (98-108); Creatinine, Blood 0.8 mg/dL (0.40-1.00); Globulin, Blood 3.0 g/dL (2.2-4.0); Glucose, Blood 79.0 mg/dL (70-99); Potassium, Blood 4.1 mmol/L (3.5-5.5); Sodium, Blood 138.0 mmol/L (136-145); Total Protein, Blood 6.5 g/dL (6.4-8.2)
[2025-05-09] MEDS ORDERED: LORazepam 2 MG/ML 1ML Injection IV ONE (04:45)
[2025-05-09 04:52] LABS: pH Blood Venous 7.38 (7.34-7.37)
[2025-05-09 07:30] VITALS: BP 123/77
== END 2025-05-09 07:45 | disposition home or self-care (01) ==
LOC: ER 01:54
PROVIDERS: Emergency Medicine
DX: G24.09 Other drug induced dystonia (principal); F43.10 Post-traumatic stress disorder, unspecified; Z79.899 Other long term (current) drug therapy; Z88.0 Allergy status to penicillin; Z88.1 Allergy status to other antibiotic agents; Z88.8 Allergy status to other drugs, medicaments and biological substances; Z91.048 Other nonmedicinal substance allergy status
CPT/HCPCS: 80053; 82803; 85025; 93005; 93010; 96361; 96374; 96375; 99284-25; J1200; J2060; J7030